=== PATIENT | male | born 1980 | race Caucasian/White ===

== ENCOUNTER 2017-07-19 21:36 | Inpatient (IN) | payer OTHER, MEDICARE ==
[~2017-07-19] VITALS: Ht 170.2 cm; Wt 71.0 kg
--- NOTE | 2017-07-19 22:14 | PD ---
HPI Chief Complaint: AGGRESSIVE/HI Time Seen by Provider: 22:01 Travel History International Travel<30 days: No Contact w/Intl Traveler<30days: No Traveled to known affect area: No History of Present Illness HPI PATIENT LIVES IN AN ASSISTED FACILITY IN [place] WHICH SENT HIM HERE. PATIENT IS UNAWARE TO WHY HE IS AT THIS FACILITY. HE BELIEVES HE'S HERE TO SPEND THE NIGHT BEFORE GOING TO HIS "NEW HOUSE"....WE PLACED CALL TO FACILITY TO CLEAR UP SINCE PATIENT HAS H/O PARANOID SCHIZOPHRENIA AND WAS SENT TO OUR FACILITY WITHOUT GARAY ACT OR ANY OTHER EXPLANATION...HE DENIES ANY SI/HI HERE TO ME. AFTER SPEAKING TO MOTHER THE STORY IS MUCH BETTER CLARIFIED: APPARENTLY PATIENT USE TO LIVE IN A SKILLED NURSING, WHICH WAS CLOSING ITS DOORS, IN PROCESS HE WAS RECCOMENDED TO GO TO ANOTHER SKILLED NURSING, HOWEVER THIS HOME DECLINED HIM BECAUSE PATIENT HAS BOUTS OF AGGRESSION. MOTHER TOOK HIM HOME, WHERE HE HAD ONE OF THESE EPISODES AND HE WAS RUNNING AROUND THE OUTSIDE OF HOUSE, YELLING THAT THEY ARE OUT TO GET HIM....MOTHER CALLED POLICE BECAUSE SHE WAS AFRAID FOR HER SAFETY. INSTEAD OF GARAY ACTING THE OFFICER ASKED IF PATIENT WOULD COME VOLUNTARILY....AND THAT IS HOW PATIENT ARRIVES AT THIS FACILITY ALL:NKDA PMHX:PARANOID SCHIZOPHRENIA PSHX: DENIES PFSH Social History Tobacco Use: Yes Allergies-Medications (Allergen,Severity, Reaction): Coded Allergies: No Known Allergies (Verified Allergy, Unknown, 07/19/17) Reported Meds & Prescriptions Reported Meds & Active Scripts Active Reported Depakote ER (Divalproex Sodium) 500 Mg Courtney 1,000 Mg PO DAILY Risperidone 4 Mg Tab 4 Mg PO BID Benztropine (Benztropine Mesylate) 0.5 Mg Tab 2 Mg PO BID Review of Systems Except as stated in HPI: all other systems reviewed are Neg Physical Exam Narrative GENERAL: SKIN: Warm and dry. HEAD: Atraumatic. Normocephalic. EYES: Pupils equal and round. No scleral icterus. No injection or drainage. ENT: No nasal bleeding or discharge. Mucous membranes pink and moist. NECK: Trachea midline. No JVD. CARDIOVASCULAR: Regular rate and rhythm. RESPIRATORY: No accessory muscle use. Clear to auscultation. Breath sounds equal bilaterally. GASTROINTESTINAL: Abdomen soft, non-tender, nondistended. Hepatic and splenic margins not palpable. MUSCULOSKELETAL: Extremities without clubbing, cyanosis, or edema. No obvious deformities. NEUROLOGICAL: Awake and alert. No obvious cranial nerve deficits. Motor grossly within normal limits. Five out of 5 muscle strength in the arms and legs. Normal speech. PSYCHIATRIC: FLAT affect;. Data Data Last Documented VS Vital Signs Date Time Temp Pulse Resp B/P (MAP) Pulse Ox O2 Delivery O2 Flow Rate FiO2 07/19/17 22:23 97.8 92 16 120/75 (90) 100 Orders Orders Complete Blood Count With Diff (07/19/17 22:01) Comprehensive Metabolic Panel (07/19/17 22:) Urinalysis - C+S If Indicated (07/19/17 22:) Electrocardiogram (07/19/17 22:) Valproic Acid (Depakene) (07/19/17 22:) Psych Screen (07/19/17 22:) Drug Screen, Random Urine (07/19/17 22:) Alcohol (Ethanol) (07/19/17 22:01) Salicylates (Aspirin) (07/19/17 22:01) Tylenol (Acetaminophen) (07/19/17 22:01) Labs Laboratory Tests Test 07/19/17 22:10 White Blood Count 12.2 TH/MM3 Red Blood Count 4.79 MIL/MM3 Hemoglobin 16.2 GM/DL Hematocrit 45.5 % Mean Corpuscular Volume 95.2 FL Mean Corpuscular Hemoglobin 33.8 PG Mean Corpuscular Hemoglobin Concent 35.6 % Red Cell Distribution Width 13.2 % Platelet Count 320 TH/MM3 Mean Platelet Volume 7.7 FL Neutrophils (%) (Auto) 60.7 % Lymphocytes (%) (Auto) 25.1 % Monocytes (%) (Auto) 11.9 % Eosinophils (%) (Auto) 1.5 % Basophils (%) (Auto) 0.8 % Neutrophils # (Auto) 7.4 TH/MM3 Lymphocytes # (Auto) 3.1 TH/MM3 Monocytes # (Auto) 1.5 TH/MM3 Eosinophils # (Auto) 0.2 TH/MM3 Basophils # (Auto) 0.1 TH/MM3 CBC Comment DIFF FINAL Differential Comment Urine Color LIGHT-YELLOW Urine Turbidity CLEAR Urine pH 6.5 Urine Specific [place] 1.004 Urine Protein NEG mg/dL Urine Glucose (UA) NEG mg/dL Urine Ketones NEG mg/dL Urine Occult Blood NEG Urine Nitrite NEG Urine Bilirubin NEG Urine Urobilinogen 2.0 MG/DL Urine Leukocyte Esterase NEG Urine WBC 1 /hpf Microscopic Urinalysis Comment CULT NOT INDICATED Blood Urea Nitrogen 7 MG/DL Creatinine 0.71 MG/DL Random Glucose 94 MG/DL Total Protein 7.8 GM/DL Albumin 3.6 GM/DL Calcium Level 8.5 MG/DL Alkaline Phosphatase 82 U/L Aspartate Amino Transf (AST/SGOT) 18 U/L Alanine Aminotransferase (ALT/SGPT) 17 U/L Total Bilirubin 0.3 MG/DL Sodium Level 132 MEQ/L Potassium Level 4.0 MEQ/L Chloride Level 98 MEQ/L Carbon Dioxide Level 26.4 MEQ/L Anion Gap 8 MEQ/L Estimat Glomerular Filtration Rate 126 ML/MIN Salicylates Level 4.4 MG/DL Urine Opiates Screen NEG Acetaminophen Level LESS THAN 2.0 MCG/ML Urine Barbiturates Screen NEG Valproic Acid (Depakene) Level 13 MCG/ML Urine Amphetamines Screen NEG Urine Benzodiazepines Screen NEG Urine Cocaine Screen NEG Urine Cannabinoids Screen NEG Ethyl Alcohol Level LESS THAN 3 MG/DL MDM Medical Decision Making Medical Screen Exam Complete: Yes Emergency Medical Condition: Yes Medical Record Reviewed: Yes Interpretation(s) NSR 80'S, NL INTERVALS, NONSTEMI PATTERN.. Differential Diagnosis INGESTIONS V UTI V ELECTROLYTE ABNL V PARANOID DELUSIONS Narrative Course PATIENT WAS FOUND TO BE WITHOUT E/O UTI, NORMAL ELECTROLYTES, PATIENT DEPAKOTE LEVELS WERE LOW ALSO SUGGESTING THAT PATIENT IS NONCOMPLIANT WITH MEDICATIONS. PT IS MEDICALLY CLEARED FOR PSYCHIATRIC EVALUATION Diagnosis Primary Impression: JARROD ACT-MEDICAL CLEARANCE Thomas Barrios MD Jul 19, 2017 22:14
[2017-07-19 22:23] VITALS: BP 120/75; PULSE 92; RESP 16; TEMP 97.8; O2SAT 100
[2017-07-19 22:30] LABS: AUTOMATED NEUTROPHIL # 7.4 TH/MM3 (1.8-7.7); BASOPHIL # 0.1 TH/MM3 (0-0.2); BASOPHIL % 0.8 % (0.0-2.0); EOSINOPHIL # 0.2 TH/MM3 (0-0.4); EOSINOPHIL % 1.5 % (0.0-4.0); HEMATOCRIT 45.5 % (39.0-51.0); HEMOGLOBIN 16.2 GM/DL (13.0-17.0); LYMPH % 25.1 % (9.0-44.0); LYMPHOCYTE # 3.1 TH/MM3 (1.0-4.8); MEAN CELL VOLUME 95.2 FL (80.0-100.0); MEAN CORPUSCULAR HEMOGLOBIN 33.8 PG (27.0-34.0); MEAN CORPUSCULAR HGB CONC 35.6 % (32.0-36.0); MEAN PLATELET VOLUME 7.7 FL (7.0-11.0); MONO % 11.9 % (0.0-8.0); MONOCYTE # 1.5 TH/MM3 (0-0.9); NEUT % 60.7 % (16.0-70.0); PLATELET COUNT 320 TH/MM3 (150-450); RED BLOOD COUNT 4.79 MIL/MM3 (4.50-5.90); RED CELL DISTRIBUTION WIDTH 13.2 % (11.6-17.2); WHITE BLOOD COUNT 12.2 TH/MM3 (4.0-11.0)
[2017-07-19 22:32] LABS: BILIRUBIN, URINE NEG (NEG); BLOOD, URINE NEG (NEG); GLUCOSE,URINE NEG (NEG); KETONE, URINE NEG (NEG); NITRITE,URINE NEG (NEG); PH, URINE 6.5 (5.0-8.5); URINE COLOR LIGHT-YELLOW (YELLW/STRAW); URINE LEUKOCYTE ESTERASE NEG (NEG)
[2017-07-19 22:51] LABS: ALBUMIN 3.6 GM/DL (3.4-5.0); ALT (GPT) 17 U/L (12-78); AST (GOT) 18 U/L (15-37); BICARBONATE 26.4 MEQ/L (21.0-32.0); BLOOD UREA NITROGEN 7 MG/DL (7-18); CALCIUM 8.5 MG/DL (8.5-10.1); CHLORIDE 98 MEQ/L (98-107); CREATININE 0.71 MG/DL (0.60-1.30); GLOMERULAR FILTRATION RATE 126 ML/MIN (>89); GLUCOSE,RANDOM 94 MG/DL (74-106); SODIUM (NA) 132 MEQ/L (136-145)
[2017-07-19 22:54] LABS: ALKALINE PHOSPHATASE 82 U/L (45-117); TOTAL BILIRUBIN ADULT 0.3 MG/DL (0.2-1.0); TOTAL PROTEIN 7.8 GM/DL (6.4-8.2)
[2017-07-19 22:57] LABS: ACETAMINOPHEN LESS THAN 2.0 MCG/ML (10.0-30.0)
[2017-07-19] MEDS ORDERED: BENZ0.5T PO (23:22)
[2017-07-19] MEDS ORDERED: DEPA500T3 PO (23:22)
[2017-07-19] MEDS ORDERED: RISP4TAB2 PO (23:22)
--- NOTE | 2017-07-20 10:22 | EKG ---
Date Performed: 07/19/2017 Time Performed: 23:58:18 PTAGE: 36 years EKG: Sinus rhythm NO PREVIOUS TRACING DOCTOR: Nitin Ty Interpretating Date/Time 07/20/2017 10:20:17
[2017-07-20 15:25] VITALS: BP 127/76; PULSE 92; RESP 18; TEMP 97.5; O2SAT 98
[2017-07-20 22:15] VITALS: BP_SYST 123; BP_SYST 133; BP_DIAS 71; BP_DIAS 75; PULSE 69; PULSE 75; RESP 16; RESP 18; TEMP 98.2; TEMP 98.3; O2SAT 100; O2SAT 99
[2017-07-21 02:00] VITALS: BP 112/57; PULSE 73; RESP 18; TEMP 97.9; O2SAT 95
[2017-07-21 04:19] VITALS: BP 112/57; PULSE 73; RESP 18; TEMP 97.9; O2SAT 95
[2017-07-21 06:17] VITALS: BP 122/78; PULSE 88; RESP 18; TEMP 97.8; O2SAT 99
[2017-07-21 11:00] VITALS: BP 121/65; PULSE 94; RESP 18
[2017-07-21] MEDS ORDERED: ACETAMINOPHEN 325 MG TAB PO PRN (12:00)
[2017-07-21] MEDS ORDERED: ALUMINUM/MAGNESIUM/SIMETH 30 ML CUP PO PRN (12:00)
[2017-07-21] MEDS ORDERED: LORazepam 2 MG/ML VIAL IM PRN (12:00)
[2017-07-21] MEDS ORDERED: hydrOXYzine HCL 50 MG TAB PO PRN (12:00)
[2017-07-21] MEDS ORDERED: LORazepam 1 MG TAB PO PRN (12:00)
[2017-07-21] MEDS ORDERED: MAGNESIUM HYDROXIDE SUSP 30 ML CUP PO PRN (12:00)
--- NOTE | 2017-07-21 12:08 | HHI.HP ---
Provisional Diagnosis Admission Date [place] I. Paranoid schizophrenia Certification of Person's Competence To Provide Express and Informed Consent I have personally examined Josep Albarado , a person being served at [facility] on, Jul 21, 2017 11:56. Express and informed consent means consent voluntarily given in writing, by a competent person, after sufficient explanation and disclosure of the subject matter involved to enable the person to make a knowing and willful decision without any element of force, fraud, deceit, duress, or other form of constraint or coercion. This person is 18 years of age or older, is not now known to be incompetent to consent to treatment with a guardian advocate, and does not have a health care surrogate or proxy currently making medical treatment decisions. I have found this person to be one of the following: [x] Competent to provide express and informed consent, as defined above, for voluntary admission to this facility and is competent to provide express and informed consent for treatment. He/she has the consistent capacity to make well reasoned, willful, and knowing decisions concerning his or her medical or mental health treatment. The person fully and consistently understands the purpose of the admission for examination/placement and is fully capable of personally exercising all rights assured [place] Incompetent to provide express and informed consent to voluntary admission, and this is incompetent to provide express and informed consent to treatment. The person must be transferred to involuntary status and a petition for a guardian advocate filed with the Circuit Court. [] Refusing to provide express and informed consent to voluntary admission but is competent to provide express and informed consent for treatment. The person must be discharged or transferred to involuntary status. Form shall be completed within 24 hours of a person's arrival at the receiving facility and filed in the clinical record of each person: 1. Admitted on a voluntary basis 2. Permitted to provide express and informed consent to his/her own treatment 3. Allowed to transfer from involuntary to voluntary status 4. Prior to permitting a person to consent to his or her own treatment after having been previously found incompetent to consent to treatment. History of Present Illness Capacity: Has Capacity HPI This is a 36-year-old male with a multiyear history of schizophrenia, presenting under a Ybarra act that was initiated by one of our ED attending physicians. Apparently the patient had to leave a correction in which he resided. In the process of attempting to get another correction, he was determined to be aggressive and therefore rejected. He has stayed with his mother recently and had one of these episodes of aggression, psychosis and threatening behavior. Apparently he was running around his mother's house, both inside and outside, calling and yelling that he was being persecuted and unknown other people were out to "get him". He became so agitated as to threaten physical aggression with his mother. Upon interview, the patient has obvious symptoms of tardive dyskinesia. His medications were reviewed and he is on high doses of Risperdal and low doses of Cogentin. He does feel paranoid and he is on able to contract for safety. Review of Systems Psychiatric: COMPLAINS OF: Delusions Except as stated in HPI: all other systems reviewed are Neg Past Psych History Psychological trauma history Unknown for psychological trauma. Patient does have multiyear history of schizophrenia. This is reportedly his first psychiatric hospitalization at [place]. Violence risk - others (6 mos) High. Violence risk - self (6 mos) Moderate. Substance Abuse History Drugs/Alcohol past 12 months Denied. Past Family Social History Coded Allergies: No Known Allergies (Verified Allergy, Unknown, 07/19/17) Reported Medications Divalproex ER (Depakote ER) 500 Mg Courtney, 1500 MG PO HS for Control Seizures, # 60 TAB 0 Refills 07/19/17 Risperidone (Risperidone) 4 Mg Tab, 4 MG PO BID, #30 TAB 0 Refills 07/19/17 Benztropine (Benztropine) 0.5 Mg Tab, 2 MG PO BID, #60 TAB 0 Refills 07/19/17 Discontinued Reported Medications Divalproex ER (Depakote ER) 500 Mg Courtney, 1500 MG PO HS for Control Seizures, # 30 TAB 0 Refills 07/19/17 Current Medications Medications (Trade) Dose Ordered Sig/Jasmyn Route Start Time Stop Time Status Last Admin (Ativan) 1 mg Q6H PRN PO 07/21/17 12:00 UNV (Ativan Inj) 1 mg Q6H PRN IM 07/21/17 12:00 UNV (Tylenol) 650 mg Q4H PRN PO 07/21/17 12:00 UNV (Milk Of Magnesia Liq) 30 ml DAILY PRN PO 07/21/17 12:00 UNV (Mag-Al Plus Susp Liq) 30 ml Q6H PRN PO 07/21/17 12:00 UNV (Atarax) 50 mg Q6H PRN PO 07/21/17 12:00 UNV Family Psych History Positive for psychotic illness. Social History Unemployed. Receives Social Security disability. Does have a supportive mother but she cannot handle him at this time. Denies the use and abuse of illicit substances. States he is compliant with his medicines although his Depakote level is low. Patient's Strengths (min. 2) Supportive mother and has access to healthcare. Physical Exam GENERAL: SKIN: Warm and dry. HEAD: Normocephalic. EYES: No scleral icterus. No injection or drainage. NECK: Supple, trachea midline. No JVD or lymphadenopathy. CARDIOVASCULAR: Regular rate and rhythm without murmurs, gallops, or rubs. RESPIRATORY: Breath sounds equal bilaterally. No accessory muscle use. GASTROINTESTINAL: Abdomen soft, non-tender, nondistended. MUSCULOSKELETAL: No cyanosis, or edema. BACK: Nontender without obvious deformity. No CVA tenderness. Vital Signs Vital Signs Date Time Temp Pulse Resp B/P (MAP) Pulse Ox O2 Delivery O2 Flow Rate FiO2 07/21/17 11:00 94 18 121/65 (83) Room Air 07/21/17 06:17 97.8 99 Mental Status Examination Appearance: Disheveled Consciousness: Alert Orientation: Person Motor Activity: Normal gait Speech: Hesitant Language: Adequate Fund of Knowledge: Inadequate Attention and Concentration: Easily Distracted Memory: Impaired Mood: Anxious Affect: Labile Thought Process & Associations: Loose associations Thought Content: Delusional Hallucination Type: None Delusion Type: Paranoid Suicidal Ideation: No Suicidal Plan: No Suicidal Intention: No Homicidal Ideation: No Homicidal Plan: No Homicidal Intention: No Insight: Fair Judgment: Impulsive Assessment & Plan Problem List: (1) Schizophrenia, paranoid type ICD Codes: F20.0 - Paranoid schizophrenia Assessment & Plan Estimated LOS: days. 36-year-old male with multiyear history of schizophrenia , obvious tardive dyskinesia, high dose Risperdal, continued paranoid delusions , and agitated threatening behavior at home towards mother. Because of the patient's agitation, paranoia and history of aggression, he is being admitted for further evaluation and treatment. This physician has ordered a CBC and comprehensive metabolic panel to determine if any infectious process or metabolic process is causing or contributing to his psychosis and agitation. Additionally, because he is on high dose Risperdal , which is known to cause hyperprolactinemia, we will check a prolactin level. Additionally, this physician ordered thyroid stimulating hormone levels, vitamin B-12 levels and vitamin D levels in order to determine if any deficiencies in these areas are causing or contributing to the patient's psychosis and agitation. This physician also ordered an EKG to determine the patient's cardiac conduction status as his psychotropic medicines can be adversely affecting his cardiac conduction system. This physician spoke with the patient's nurse regarding his recent behavior here in the emergency department. We will ask case management to get involved to provide further information from mother and assist with disposition planning. Fareed Paris MD Jul 21, 2017 12:08
[2017-07-21 14:05] VITALS: BP 117/71; PULSE 79; RESP 18; TEMP 98.3; O2SAT 100
[2017-07-21 18:13] VITALS: BP 128/66; PULSE 68; RESP 18; TEMP 98; O2SAT 98
[2017-07-21] MEDS: BENZTROPINE MESYLATE 1 MG TAB PO SCH (20:58)
[2017-07-21] MEDS: DIVALPROEX SODIUM E.R. 500 MG TAB PO SCH (20:58)
[2017-07-21] MEDS: risperiDONE 1 MG TAB PO SCH (20:59)
[2017-07-22 06:21] VITALS: BP 118/58; PULSE 82; RESP 18; TEMP 98.3; O2SAT 100
[2017-07-22] MEDS: risperiDONE 1 MG TAB PO SCH ×2 (08:44→21:04)
[2017-07-22] MEDS: BENZTROPINE MESYLATE 1 MG TAB PO SCH ×2 (08:44→21:04)
--- NOTE | 2017-07-22 09:35 | EKG ---
Date Performed: 07/22/2017 Time Performed: 08:07:07 PTAGE: 36 years EKG: Sinus rhythm NORMAL ECG No significant change from prior electrocardiogram. PREVIOUS TRACING : 07/19/2017 23.58 DOCTOR: Eric Villagomez Interpretating Date/Time 07/22/2017 09:33:56
[2017-07-22 10:54] LABS: AUTOMATED NEUTROPHIL # 3.7 TH/MM3 (1.8-7.7); BASOPHIL # 0.1 TH/MM3 (0-0.2); BASOPHIL % 0.8 % (0.0-2.0); EOSINOPHIL # 0.1 TH/MM3 (0-0.4); HEMATOCRIT 43.6 % (39.0-51.0); LYMPH % 29.8 % (9.0-44.0); MEAN CELL VOLUME 94.5 FL (80.0-100.0); MEAN CORPUSCULAR HEMOGLOBIN 32.5 PG (27.0-34.0); MEAN CORPUSCULAR HGB CONC 34.4 % (32.0-36.0); MEAN PLATELET VOLUME 7.4 FL (7.0-11.0); MONO % 11.6 % (0.0-8.0); MONOCYTE # 0.8 TH/MM3 (0-0.9); NEUT % 56.8 % (16.0-70.0); PLATELET COUNT 327 TH/MM3 (150-450); RED BLOOD COUNT 4.61 MIL/MM3 (4.50-5.90); RED CELL DISTRIBUTION WIDTH 13.2 % (11.6-17.2); WHITE BLOOD COUNT 6.6 TH/MM3 (4.0-11.0)
--- NOTE | 2017-07-22 11:09 | HHI.PYPN ---
Subjective Remarks Patient seen and examined with nurse in counselor. Chart reviewed. Case discussed with counselor and nurse. On my examination today, the patient says that he came into the hospital because "I just pricila moved out and need to find a place to stay." He maintains that he was compliant with medications prior to admission although this seems unlikely given his Depakote level. He denies any suicidal or homicidal ideation. Denies any audiovisual hallucinations but does appear a little bit internally preoccupied. He does exhibit some thought blocking. Denies side effects from medications. No physical complaints. Patient is requesting discharge from the inpatient psychiatric unit today, although it does not seem that he has a safe discharge plan. Review of Systems ROS Limitations: Psychotic, Poor Historian Except as stated in HPI: all other systems reviewed are Neg Mental Status Examination Appearance: Disheveled Consciousness: Alert Orientation: Person Motor Activity: Normal gait, Other (no hand tremor, no cogwheeling, no other motor abnormalities noted.) Speech: Hesitant Language: Adequate Fund of Knowledge: Inadequate Attention and Concentration: Easily Distracted Memory: Impaired Mood: Other (calm) Affect: Blunt Thought Process & Associations: Other (slowed) Thought Content: Thought blocking, Delusional Hallucination Type: None Delusion Type: Paranoid (mild) Suicidal Ideation: No Suicidal Plan: No Suicidal Intention: No Homicidal Ideation: No Homicidal Plan: No Homicidal Intention: No Insight: Fair Judgment: Impulsive Results Labs Item Value Date Time White Blood Count 6.6 TH/MM3 07/22/17 1018 Hemoglobin 15.0 GM/DL 07/22/17 1018 Platelet Count 327 TH/MM3 07/22/17 1018 Sodium Level 133 MEQ/L L 07/22/17 1018 Potassium Level 4.1 MEQ/L 07/22/17 1018 Chloride Level 101 MEQ/L 07/22/17 1018 Carbon Dioxide Level 27.2 MEQ/L 07/22/17 1018 Blood Urea Nitrogen 10 MG/DL 07/22/17 1018 Creatinine 0.69 MG/DL 07/22/17 1018 Estimat Glomerular Filtration Rate 130 ML/MIN 07/22/17 1018 Aspartate Amino Transf (AST/SGOT) 13 U/L L 07/22/17 1018 Alanine Aminotransferase (ALT/SGPT) 14 U/L 07/22/17 1018 Alkaline Phosphatase 69 U/L 07/22/17 1018 Random Glucose 94 MG/DL 07/22/17 1018 Vitamin B12 Level 326 PG/ML 07/22/17 1018 25-Hydroxy Vitamin D Total 18.9 ng/ML L 07/22/17 1018 Thyroid Stimulating Hormone 3rd Gen 0.659 uIU/ML 07/22/17 1018 Urine Opiates Screen NEG 07/19/17 2210 Urine Barbiturates Screen NEG 07/19/17 2210 Valproic Acid (Depakene) Level 13 MCG/ML L 07/19/17 2210 Urine Amphetamines Screen NEG 07/19/17 2210 Urine Benzodiazepines Screen NEG 07/19/17 2210 Urine Cocaine Screen NEG 07/19/17 221 Urine Cannabinoids Screen NEG 07/19/17 221 Ethyl Alcohol Level LESS THAN 3 MG/DL 07/19/17 221 Labs reviewed. Depakote level significantly subtherapeutic, especially for reported dose. Vitamin D level low. Stable hyponatremia noted. EKG sinus rhythm with a QTC of 378 ms. Vitals/IOs Vital Signs Date Time Temp Pulse Resp B/P (MAP) Pulse Ox O2 Delivery O2 Flow Rate FiO2 07/22/17 06:21 98.3 82 18 118/58 (78) 100 07/21/17 11:00 Room Air Assessment & Plan Problem List: (1) Schizophrenia, paranoid type ICD Codes: F20.0 - Paranoid schizophrenia Assessment & Plan Continue Risperdal and Cogentin as ordered. To consider long-acting injectable. Continue Depakote as ordered with plans to check Depakote level and ammonia level after the weekend. Vitamin D supplement. Check BMP over the weekend to trend hyponatremia. Continue to monitor on high acuity unit. Continue other medications and care as ordered. Patient is requesting discharge today, but I do not believe that discharge at this time is safe from a psychiatric standpoint, and it is not clear that he has any safety discharge plan at present. I will initiate a petition for involuntary psychiatric hospitalization and consult for second opinion. Justification for Cont. Inpt. Risk for decompensation in less restrictive environment. Discharge Planning Patient likely requires new placement. Case discussed with counselor. Request HC Surrog/Guard Advoc?: No Christopher Wall MD Jul 22, 2017 11:09
[2017-07-22 11:22] LABS: ALBUMIN 3.2 GM/DL (3.4-5.0); AST (GOT) 13 U/L (15-37); BICARBONATE 27.2 MEQ/L (21.0-32.0); BLOOD UREA NITROGEN 10 MG/DL (7-18); CALCIUM 8.5 MG/DL (8.5-10.1); CHLORIDE 101 MEQ/L (98-107); CREATININE 0.69 MG/DL (0.60-1.30); GLOMERULAR FILTRATION RATE 130 ML/MIN (>89); GLUCOSE,RANDOM 94 MG/DL (74-106); SODIUM (NA) 133 MEQ/L (136-145)
[2017-07-22 11:23] LABS: ALT (GPT) 14 U/L (12-78); CHOLESTEROL 115 MG/DL (120-200)
[2017-07-22 11:49] LABS: ALKALINE PHOSPHATASE 69 U/L (45-117); CHOLESTEROL/ HDL RATIO 2.69 RATIO; HDL CHOLESTEROL 42.6 MG/DL (40.0-60.0); LDL CHOLESTEROL 61 MG/DL (0-99); TOTAL BILIRUBIN ADULT 0.5 MG/DL (0.2-1.0); TOTAL PROTEIN 7.1 GM/DL (6.4-8.2); TRIGLYCERIDES 58 MG/DL (42-150)
--- NOTE | 2017-07-22 12:12 | PD.PSY.CON ---
Provisional Diagnosis Admission Date Jul 21, 2017 at 11:51 [place] I. Paranoid schizophrenia History of Present Illness Service Psychiatry Consult Requested By Dr. Wall X Reason for Consult Second opinion Primary Care Physician No Primary Care Physician HPI This is a 36-year-old male with a multiyear history of schizophrenia, presenting under a Ybarra act that was initiated by one of our ED attending physicians. Apparently the patient had to leave a mcc in which he resided. In the process of attempting to get another mcc, he was determined to be aggressive and therefore rejected. He has stayed with his mother recently and had one of these episodes of aggression, psychosis and threatening behavior. Apparently he was running around his mother's house, both inside and outside, calling and yelling that he was being persecuted and unknown other people were out to "get him". He became so agitated as to threaten physical aggression with his mother. Upon interview, the patient has obvious symptoms of tardive dyskinesia. His medications were reviewed and he is on high doses of Risperdal and low doses of Cogentin. He does feel paranoid and he is on able to contract for safety. The patient is a 36 years old white male, with history of schizophrenia, hospitalizations, consulted for second opinion. On psychiatric evaluation today the patient says that he is doing fine, that he wants to go home. She is very oppositional, resistant, reason to provide information for the interview. He seems be internally preoccupied and paranoid. Review of Systems Except as stated in HPI: all other systems reviewed are Neg Past Family Social History Coded Allergies: No Known Allergies (Verified Allergy, Unknown, 07/19/17) Reported Medications Divalproex ER (Depakote ER) 500 Mg Courtney, 1500 MG PO HS for Control Seizures, # 60 TAB 0 Refills 07/19/17 Risperidone (Risperidone) 4 Mg Tab, 4 MG PO BID, #30 TAB 0 Refills 07/19/17 Benztropine (Benztropine) 0.5 Mg Tab, 2 MG PO BID, #60 TAB 0 Refills 07/19/17 Discontinued Reported Medications Divalproex ER (Depakote ER) 500 Mg Courtney, 1500 MG PO HS for Control Seizures, # 30 TAB 0 Refills 07/19/17 Current Medications Medications (Trade) Dose Ordered Sig/Jasmyn Route Start Time Stop Time Status Last Admin (Ativan) 1 mg Q6H PRN PO 07/21/17 12:00 (Ativan Inj) 1 mg Q6H PRN IM 07/21/17 12:00 (Tylenol) 650 mg Q4H PRN PO 07/21/17 12:00 (Milk Of Magnesia Liq) 30 ml DAILY PRN PO 07/21/17 12:00 (Mag-Al Plus Susp Liq) 30 ml Q6H PRN PO 07/21/17 12:00 (Atarax) 50 mg Q6H PRN PO 07/21/17 12:00 (Cogentin) 2 mg BID PO 07/21/17 21:00 07/22/17 08:44 (Depakote Er) 1,500 mg HS PO 07/21/17 21:00 07/21/17 20:58 (risperDAL) 4 mg BID PO 07/21/17 21:00 07/22/17 08:44 Patient's Strengths (min. 2) Supportive mother and has access to healthcare. Physical Exam Vital Signs Vital Signs Date Time Temp Pulse Resp B/P (MAP) Pulse Ox O2 Delivery O2 Flow Rate FiO2 07/22/17 06:21 98.3 82 18 118/58 (78) 100 07/21/17 11:00 Room Air Lab Results Test 07/22/17 10:18 White Blood Count 6.6 TH/MM3 Red Blood Count 4.61 MIL/MM3 Hemoglobin 15.0 GM/DL Hematocrit 43.6 % Mean Corpuscular Volume 94.5 FL Mean Corpuscular Hemoglobin 32.5 PG Mean Corpuscular Hemoglobin Concent 34.4 % Red Cell Distribution Width 13.2 % Platelet Count 327 TH/MM3 Mean Platelet Volume 7.4 FL Neutrophils (%) (Auto) 56.8 % Lymphocytes (%) (Auto) 29.8 % Monocytes (%) (Auto) 11.6 % Eosinophils (%) (Auto) 1.0 % Basophils (%) (Auto) 0.8 % Neutrophils # (Auto) 3.7 TH/MM3 Lymphocytes # (Auto) 2.0 TH/MM3 Monocytes # (Auto) 0.8 TH/MM3 Eosinophils # (Auto) 0.1 TH/MM3 Basophils # (Auto) 0.1 TH/MM3 CBC Comment DIFF FINAL Differential Comment Blood Urea Nitrogen 10 MG/DL Creatinine 0.69 MG/DL Random Glucose 94 MG/DL Total Protein 7.1 GM/DL Albumin 3.2 GM/DL Calcium Level 8.5 MG/DL Alkaline Phosphatase 69 U/L Aspartate Amino Transf (AST/SGOT) 13 U/L Alanine Aminotransferase (ALT/SGPT) 14 U/L Total Bilirubin 0.5 MG/DL Sodium Level 133 MEQ/L Potassium Level 4.1 MEQ/L Chloride Level 101 MEQ/L Carbon Dioxide Level 27.2 MEQ/L Anion Gap 5 MEQ/L Estimat Glomerular Filtration Rate 130 ML/MIN Triglycerides Level 58 MG/DL Cholesterol Level 115 MG/DL LDL Cholesterol 61 MG/DL HDL Cholesterol 42.6 MG/DL Cholesterol/HDL Ratio 2.69 RATIO Vitamin B12 Level 326 PG/ML Thyroid Stimulating Hormone 3rd Gen 0.659 uIU/ML Mental Status Examination Appearance: Disheveled Consciousness: Alert Orientation: Person Motor Activity: Normal gait Speech: Hesitant Language: Adequate Fund of Knowledge: Inadequate Attention and Concentration: Easily Distracted Memory: Impaired Mood: Anxious Affect: Labile Thought Process & Associations: Loose associations Thought Content: Delusional Hallucination Type: None Delusion Type: Paranoid Suicidal Ideation: No Suicidal Plan: No Suicidal Intention: No Homicidal Ideation: No Homicidal Plan: No Homicidal Intention: No Insight: Fair Judgment: Impulsive Assessment & Plan Problem List: (1) Schizophrenia, paranoid type ICD Codes: F20.0 - Paranoid schizophrenia Assessment & Plan: I have seen and examined this patient, review documentation , I agree and concur with Dr. Wall. Assessment & Plan Estimated LOS: Darrin King MD Jul 22, 2017 12:12
--- NOTE | 2017-07-22 13:06 | PD.TTN ---
Patient Problems 1. Discharge planning 2. Medication compliance 3. Knowledge deficit 4. Lack of coping skills Progress Toward Goals Provider Present: Dr. La Wall Provider Input: Pt is new to the unit and will be evaluated along with his medication regiment. Psychiatric Counselors Present: ANDREA Azar Psych Therapist Input: Pt is new to the unit and will be evaluated using biopsychosocial assessment. Group Spec/RT/OT/IRWIN Present: Aba Hu OT Group Spec/RT/OT/IRWIN Input: Pt is new and will be evaluated. Discharge Plan SMA, Other Pt will need assistance with placement in an [facility] as he cannot return to mother' s home due to aggression leading to admission. Documentation Scribe: ANDREA Azar Jonathan LMHC Jul 22, 2017 13:06
[2017-07-22 13:52] LABS: HEMOGLOBIN A1C 5.3 % (4.3-6.0)
[2017-07-22 18:00] VITALS: BP 113/68; PULSE 79; RESP 18; TEMP 98.2; O2SAT 100
[2017-07-22] MEDS: DIVALPROEX SODIUM E.R. 500 MG TAB PO SCH (21:04)
[2017-07-23 06:03] VITALS: BP 120/68; PULSE 83; RESP 18; TEMP 98; O2SAT 97
[2017-07-23] MEDS: CHOLECALCIFEROL (VIT D3) 1000 UNIT TAB PO SCH (08:29)
[2017-07-23] MEDS: BENZTROPINE MESYLATE 1 MG TAB PO SCH ×2 (08:30→20:53)
[2017-07-23] MEDS: risperiDONE 1 MG TAB PO SCH ×2 (08:30→20:53)
--- NOTE | 2017-07-23 17:09 | HHI.PYPN ---
Subjective Remarks Patient was seen and case discussed with nursing. Patient is pleasant and cooperative with exam. Appears shy with poor eye contact. Behaving well on the unit. No ETO's needed. Labs came back with an elevated prolactin level. Denies auditory visual hallucinations. Mental Status Examination Appearance: Disheveled Consciousness: Alert Orientation: Person Motor Activity: Normal gait, Other (no hand tremor, no cogwheeling, no other motor abnormalities noted.) Speech: Hesitant Language: Adequate Fund of Knowledge: Inadequate Attention and Concentration: Easily Distracted Memory: Impaired Mood: Other (calm) Affect: Blunt Thought Process & Associations: Other (slowed) Thought Content: Thought blocking Hallucination Type: None Delusion Type: None Suicidal Ideation: No Suicidal Plan: No Suicidal Intention: No Homicidal Ideation: No Homicidal Plan: No Homicidal Intention: No Insight: Fair Judgment: Impulsive Results Vitals/IOs Vital Signs Date Time Temp Pulse Resp B/P (MAP) Pulse Ox O2 Delivery O2 Flow Rate FiO2 07/23/17 06:03 98.0 83 18 120/68 (85) 97 07/21/17 11:00 Room Air Assessment & Plan Problem List: (1) Schizophrenia, paranoid type ICD Codes: F20.0 - Paranoid schizophrenia Assessment & Plan Patient is on high dose of Risperdal with an elevated prolactin level. I recommend the treating psychiatrist to determine risk versus benefits for continuation Justification for Cont. Inpt. Patient would decompensate in a less restrictive setting Request HC Surrog/Guard Advoc?: No Neo Pedroza DO Jul 23, 2017 17:09
[2017-07-23 18:32] VITALS: BP 138/85; PULSE 73; RESP 18; TEMP 98; O2SAT 98
[2017-07-23] MEDS: DIVALPROEX SODIUM E.R. 500 MG TAB PO SCH (20:54)
[2017-07-24 06:24] VITALS: BP 114/63; PULSE 98; RESP 17; TEMP 97.9; O2SAT 99
[2017-07-24] MEDS: SODIUM CHLORIDE 1 GRAM TAB PO SCH ×3 (06:48→19:32)
[2017-07-24 10:34] LABS: BICARBONATE 26.5 MEQ/L (21.0-32.0); CALCIUM 8.9 MG/DL (8.5-10.1); CREATININE 0.64 MG/DL (0.60-1.30)
[2017-07-24] MEDS: CHOLECALCIFEROL (VIT D3) 1000 UNIT TAB PO SCH (10:42)
[2017-07-24] MEDS: risperiDONE 1 MG TAB PO SCH ×2 (10:42→20:23)
[2017-07-24] MEDS: BENZTROPINE MESYLATE 1 MG TAB PO SCH ×2 (10:42→20:23)
--- NOTE | 2017-07-24 15:54 | HHI.PYPN ---
Subjective Remarks Patient was seen and case discussed with nursing. Patient is pleasant and cooperative with exam. Behaving well on the unit and compliant with medications. Per nursing was observed talking to himself this morning. Plans after discharge include finding a job. He does remained mildly disheveled with poor eye contact. Labwork reviewed and sodium continues to trend downward and was 130 today Mental Status Examination Appearance: Disheveled Consciousness: Alert Orientation: Person Motor Activity: Normal gait, Other (no hand tremor, no cogwheeling, no other motor abnormalities noted.) Speech: Hesitant Language: Adequate Fund of Knowledge: Inadequate Attention and Concentration: Easily Distracted Memory: Impaired Mood: Other (calm) Affect: Blunt Thought Process & Associations: Other (slowed) Thought Content: Thought blocking Hallucination Type: None Delusion Type: None Suicidal Ideation: No Suicidal Plan: No Suicidal Intention: No Homicidal Ideation: No Homicidal Plan: No Homicidal Intention: No Insight: Fair Judgment: Impulsive Results Labs Test 07/24/17 09:10 Blood Urea Nitrogen 8 MG/DL Creatinine 0.64 MG/DL Random Glucose 82 MG/DL Calcium Level 8.9 MG/DL Sodium Level 130 MEQ/L Potassium Level 4.5 MEQ/L Chloride Level 97 MEQ/L Carbon Dioxide Level 26.5 MEQ/L Anion Gap 7 MEQ/L Estimat Glomerular Filtration Rate 142 ML/MIN Vitals/IOs Vital Signs Date Time Temp Pulse Resp B/P (MAP) Pulse Ox O2 Delivery O2 Flow Rate FiO2 07/24/17 06:24 97.9 98 17 114/63 (80) 99 07/21/17 11:00 Room Air Assessment & Plan Problem List: (1) Schizophrenia, paranoid type ICD Codes: F20.0 - Paranoid schizophrenia Assessment & Plan Hold Depakote because of hyponatremia. Hospitalist consult. Justification for Cont. Inpt. Patient would decompensate in a less restrictive setting Request HC Surrog/Guard Advoc?: No Neo Pedroza DO Jul 24, 2017 15:54
[2017-07-24 17:19] VITALS: BP 109/71; PULSE 76; RESP 18; TEMP 98.2; O2SAT 100
[2017-07-25 05:48] VITALS: BP 103/75; PULSE 76; RESP 17; TEMP 97.4; O2SAT 98
[2017-07-25] MEDS: risperiDONE 1 MG TAB PO SCH ×2 (09:00→20:51)
[2017-07-25] MEDS: SODIUM CHLORIDE 1 GRAM TAB PO SCH ×3 (09:00→17:12)
[2017-07-25] MEDS: CHOLECALCIFEROL (VIT D3) 1000 UNIT TAB PO SCH (09:00)
[2017-07-25] MEDS: BENZTROPINE MESYLATE 1 MG TAB PO SCH ×2 (09:00→20:50)
--- NOTE | 2017-07-25 09:18 | HHI.PYPN ---
Subjective Remarks Patient seen and examined with nurse. Chart reviewed. Case discussed with nursing staff. No behavioral issues overnight. On my examination today, the patient is calm and cooperative with exam. He denies any SI, HI or AVH. Denies side effects from medications. I note that Depakote was placed on hold out of concern for possible hyponatremia, although sodium level has not improved off of Depakote, and so I will resume this agent. I also note that prolactin level was elevated. Patient denies any sexual dysfunction. He denies any breast hypertrophy. No reported galactorrhea. I discussed with him the risks and benefits of continuing with Risperdal therapy, and the patient wishes to continue with this medication for now. I have counseled him to discuss changing to a different agent with his outpatient provider should sexual side effects or other issues related to hyperprolactinemia arise. Review of Systems Except as stated in HPI: all other systems reviewed are Neg Mental Status Examination Appearance: Disheveled (grooming somewhat improved today) Consciousness: Alert Orientation: Person Motor Activity: Normal gait, Other (no motor abnormalities noted) Speech: Hesitant Language: Adequate Attention and Concentration: Adequate Memory: Unremarkable Mood: Other (calm) Affect: Blunt (remains somewhat blunted) Thought Process & Associations: Other (linear but little bit slowed) Thought Content: Appropriate (perhaps some mild thought blocking) Hallucination Type: None Delusion Type: None Suicidal Ideation: No Suicidal Plan: No Suicidal Intention: No Homicidal Ideation: No Homicidal Plan: No Homicidal Intention: No Insight: Fair Judgment: Impulsive Results Labs Labs reviewed. I note ongoing hyponatremia despite Depakote having been held. Mild hyperprolactinemia noted. Vitals/IOs Vital Signs Date Time Temp Pulse Resp B/P (MAP) Pulse Ox O2 Delivery O2 Flow Rate FiO2 07/25/17 05:48 97.4 76 17 103/75 (84) 98 07/21/17 11:00 Room Air Assessment & Plan Problem List: (1) Schizophrenia, paranoid type ICD Codes: F20.0 - Paranoid schizophrenia Assessment & Plan Resume Depakote. Plan to check a Depakote level after the appropriate interval. Continue Risperdal and Cogentin as ordered. I did offer to switch to another agent with less liability for hyperprolactinemia but the patient has declined and is presently capacitated to consent for medications. Check BMP in the morning. Continue other medications and care as ordered. Justification for Cont. Inpt. Risk for decompensation in less restrictive environment. Discharge Planning Case discussed with counselor Request HC Surrog/Guard Advoc?: No Christopher Wall MD Jul 25, 2017 09:18
[2017-07-25 09:38] LABS: AUTOMATED NEUTROPHIL # 5.4 TH/MM3 (1.8-7.7); BASOPHIL % 0.4 % (0.0-2.0); EOSINOPHIL # 0.1 TH/MM3 (0-0.4); EOSINOPHIL % 0.9 % (0.0-4.0); HEMATOCRIT 46.5 % (39.0-51.0); HEMOGLOBIN 16.3 GM/DL (13.0-17.0); LYMPH % 20.5 % (9.0-44.0); LYMPHOCYTE # 1.7 TH/MM3 (1.0-4.8); MEAN CELL VOLUME 94.4 FL (80.0-100.0); MEAN CORPUSCULAR HEMOGLOBIN 33.2 PG (27.0-34.0); MEAN CORPUSCULAR HGB CONC 35.2 % (32.0-36.0); MEAN PLATELET VOLUME 7.7 FL (7.0-11.0); MONO % 11.6 % (0.0-8.0); MONOCYTE # 0.9 TH/MM3 (0-0.9); NEUT % 66.6 % (16.0-70.0); PLATELET COUNT 294 TH/MM3 (150-450); RED BLOOD COUNT 4.92 MIL/MM3 (4.50-5.90); RED CELL DISTRIBUTION WIDTH 12.8 % (11.6-17.2); WHITE BLOOD COUNT 8.1 TH/MM3 (4.0-11.0)
[2017-07-25 09:47] LABS: ALBUMIN 3.6 GM/DL (3.4-5.0); AST (GOT) 12 U/L (15-37); BICARBONATE 32.2 MEQ/L (21.0-32.0); BLOOD UREA NITROGEN 8 MG/DL (7-18); CHLORIDE 94 MEQ/L (98-107); GLOMERULAR FILTRATION RATE 128 ML/MIN (>89); GLUCOSE,RANDOM 54 MG/DL (74-106); MAGNESIUM 2.1 MG/DL (1.5-2.5); SODIUM (NA) 132 MEQ/L (136-145)
[2017-07-25 09:53] LABS: ALKALINE PHOSPHATASE 73 U/L (45-117); ALT (GPT) 16 U/L (12-78); TOTAL BILIRUBIN ADULT 0.5 MG/DL (0.2-1.0); TOTAL PROTEIN 7.6 GM/DL (6.4-8.2)
--- NOTE | 2017-07-25 11:13 | PD.CONS ---
HPI Service [facility] Hospitalists Consult Requested By Psychiatry Reason for Consult Hyponatremia Primary Care Physician No Primary Care Physician Diagnoses: History of Present Illness 36 years old male admitted to psych unit under psychiatry service for schizophrenia management, hospitalists were asked to see the patient for hyponatremia and sodium ranged between 1:30 to 134 Patient seen and examined, he denied any symptoms such as chest a lightheaded, dizziness, diarrhea abdominal pain nausea vomiting or change in his baseline mental status Review of Systems All systems reviewed and was positive for what is mentioned in history of present illness otherwise negative Past Family Social History Allergies: Coded Allergies: No Known Allergies (Verified Allergy, Unknown, 07/19/17) Past Medical History Schizophrenia Family History Review with the patient,not aware of significant medical history runs in his family Social History Denied tobacco alcohol or illicit drug abuse Physical Exam Vital Signs Vital Signs Date Time Temp Pulse Resp B/P (MAP) Pulse Ox O2 Delivery O2 Flow Rate FiO2 07/25/17 05:48 97.4 76 17 103/75 (84) 98 07/24/17 17:19 98.2 76 18 109/71 (84) 100 Physical Exam GENERAL: This is a well-nourished, well-developed patient, in no apparent distress. SKIN: No rashes, ecchymoses or lesions. Cool and dry. HEAD: Atraumatic. Normocephalic. No temporal or scalp tenderness. EYES: Pupils equal round and reactive. Extraocular motions intact. No scleral icterus. No injection or drainage. ENT: Nose without bleeding, purulent drainage or septal hematoma. Throat without erythema, tonsillar hypertrophy or exudate. Uvula midline. Airway patent. NECK: Trachea midline. No JVD or lymphadenopathy. Supple, nontender, no meningeal signs. CARDIOVASCULAR: Regular rate and rhythm without murmurs, gallops, or rubs. RESPIRATORY: Clear to auscultation. Breath sounds equal bilaterally. No wheezes , rales, or rhonchi. GASTROINTESTINAL: Abdomen soft, non-tender, nondistended. No hepato-splenomegaly , or palpable masses. No guarding. MUSCULOSKELETAL: Extremities without clubbing, cyanosis, or edema. No joint tenderness, effusion, or edema noted. No calf tenderness. Negative Homans sign bilaterally. NEUROLOGICAL: Awake and alert. Cranial nerves II through XII intact. Motor and sensory grossly within normal limits. Five out of 5 muscle strength in all muscle groups. Normal speech. Laboratory Laboratory Tests Test 07/25/17 09:12 White Blood Count 8.1 Red Blood Count 4.92 Hemoglobin 16.3 Hematocrit 46.5 Mean Corpuscular Volume 94.4 Mean Corpuscular Hemoglobin 33.2 Mean Corpuscular Hemoglobin Concent 35.2 Red Cell Distribution Width 12.8 Platelet Count 294 Mean Platelet Volume 7.7 Neutrophils (%) (Auto) 66.6 Lymphocytes (%) (Auto) 20.5 Monocytes (%) (Auto) 11.6 Eosinophils (%) (Auto) 0.9 Basophils (%) (Auto) 0.4 Neutrophils # (Auto) 5.4 Lymphocytes # (Auto) 1.7 Monocytes # (Auto) 0.9 Eosinophils # (Auto) 0.1 Basophils # (Auto) 0.0 CBC Comment DIFF FINAL Differential Comment Blood Urea Nitrogen 8 Creatinine 0.70 Random Glucose 54 Total Protein 7.6 Albumin 3.6 Calcium Level 9.0 Phosphorus Level 2.0 Magnesium Level 2.1 Alkaline Phosphatase 73 Aspartate Amino Transf (AST/SGOT) 12 Alanine Aminotransferase (ALT/SGPT) 16 Total Bilirubin 0.5 Sodium Level 132 Potassium Level 4.5 Chloride Level 94 Carbon Dioxide Level 32.2 Anion Gap 6 Estimat Glomerular Filtration Rate 128 Ammonia 22 Valproic Acid (Depakene) Level 49 Result Diagram: 07/25/1791107/25/17911 Assessment and Plan Assessment and Plan 36 years old patient with intracranial seen at the psychiatry unit, patient had hyponatremia between 1:30 to 134 which is most likely due to Depakote, most likely nonsignificant Also patient had prolactin level increased to 65 which is also mostly attributed to his recent use of Risperdal, This can be monitored after stopping risperidone. Otherwise patient seems to be stable, I will sign off and be available as needed Discussed Condition With Patient Noelle Oneill MD Jul 25, 2017 11:13
[2017-07-25 18:53] VITALS: BP 119/73; PULSE 78; RESP 16; TEMP 97.6; O2SAT 100
[2017-07-25] MEDS: DIVALPROEX SODIUM E.R. 500 MG TAB PO SCH (20:50)
[2017-07-26 05:58] VITALS: BP 100/69; PULSE 96; RESP 18; TEMP 97.8; O2SAT 98
[2017-07-26] MEDS: risperiDONE 1 MG TAB PO SCH ×2 (08:39→21:42)
[2017-07-26] MEDS: BENZTROPINE MESYLATE 1 MG TAB PO SCH ×2 (08:39→21:43)
[2017-07-26] MEDS: CHOLECALCIFEROL (VIT D3) 1000 UNIT TAB PO SCH (08:40)
[2017-07-26] MEDS: SODIUM CHLORIDE 1 GRAM TAB PO SCH ×3 (08:40→16:05)
--- NOTE | 2017-07-26 10:14 | HHI.PYPN ---
Subjective Remarks Patient seen and examined with nurse. Chart reviewed. Case discussed in treatment team. Patient has been no behavioral problem on the unit and nursing staff notes that the patient actively asks for his scheduled psychotropic medications. On my examination today, the patient is calm and cooperative with exam. He offers no particular complaints. Affect remains blunted. He denies any suicidal or homicidal ideation. Denies any audiovisual hallucinations. Denies side effects from medications. We revisited the hyperprolactinemia issue , but the patient is not interested in a med change at this time. No physical complaints. Hopeful for discharge soon. Review of Systems ROS Limitations: Poor Historian Except as stated in HPI: all other systems reviewed are Neg Mental Status Examination Appearance: Other (fair grooming) Consciousness: Alert Orientation: Person, Place (at least) Motor Activity: Normal gait, Other (no abnormal motor movements noted) Speech: Hesitant Language: Adequate Attention and Concentration: Adequate Memory: Unremarkable Mood: Other (remains calm) Affect: Blunt (remains blunted) Thought Process & Associations: Other (remains a little bit slowed but generally linear) Thought Content: Appropriate Hallucination Type: None Delusion Type: None Suicidal Ideation: No Suicidal Plan: No Suicidal Intention: No Homicidal Ideation: No Homicidal Plan: No Homicidal Intention: No Insight: Fair Judgment: Adequate (fair) Results Labs Labs reviewed. Hyponatremia improved at 135 today. Vitals/IOs Vital Signs Date Time Temp Pulse Resp B/P (MAP) Pulse Ox O2 Delivery O2 Flow Rate FiO2 07/26/17 05:58 97.8 96 18 100/69 (79) 98 Intake and Output 07/26/17 07/26/17 07/27/17 08:00 16:00 00:00 Intake Total 480 ml Balance 480 ml Assessment & Plan Problem List: (1) Schizophrenia, paranoid type ICD Codes: F20.0 - Paranoid schizophrenia Assessment & Plan Continue Risperdal as ordered. To consider long-acting injectable antipsychotic. Continue Depakote as ordered. We will plan to obtain a Depakote level after 4-7 days of uninterrupted therapy. Hospitalist input appreciated. Continue other medications and care as ordered. Justification for Cont. Inpt. Risk for decompensation in less restrictive environment Discharge Planning New placement. Case discussed with counselor. Request HC Surrog/Guard Advoc?: No Christopher Wall MD Jul 26, 2017 10:14
[2017-07-26 12:38] LABS: BICARBONATE 29.3 MEQ/L (21.0-32.0); CALCIUM 8.9 MG/DL (8.5-10.1); CREATININE 0.65 MG/DL (0.60-1.30)
--- NOTE | 2017-07-26 13:24 | PD.TTN ---
Patient Problems 1. Discharge planning 2. Medication compliance 3. Knowledge deficit 4. Lack of coping skills Progress Toward Goals Provider Present: Dr. La Wall Provider Input: Pt is new to the unit and will be evaluated along with his medication regiment. 07/26- Pt has been continued on his medication from home and will be evaluated for placement. Nurse(s) Present: Leonarda Delcid RN Nurse(s) Input: Pt has been showing improvement, remains withdrawn to self, to be responding to internal stimuli, paces the alston and is medication compliant. Psychiatric Counselors Present: ANDREA Azar Psych Therapist Input: Pt is new to the unit and will be evaluated using biopsychosocial assessment. 07/26- Pt appears somewhat preoccupied, cooperative, withdrawn, seclusive, appropriate and organized. He appears discharge focused and with poor insight into condition and need for care. He is willing to be placed at a new SNF. He appears to be able to utilize coping and emotional regulation skills as he has not had any outbursts. He is compliant with medication regiment. Group Spec/RT/OT/IRWIN Present: FRANCIS Davison, Aba Hu OT Group Spec/RT/OT/IRWIN Input: Pt is new and will be evaluated. 07/26- FRANCIS Davison Pt does not attend groups at this time. Discharge Plan SMA, Other Pt will need assistance with placement in an [facility] as he cannot return to mother' s home due to aggression leading to admission. Documentation Scribe: ANDREA Azar Jonathan LMHC Jul 26, 2017 13:24
[2017-07-26 18:00] VITALS: BP 120/67; PULSE 87; RESP 18; TEMP 98.6; O2SAT 99
[2017-07-26] MEDS: DIVALPROEX SODIUM E.R. 500 MG TAB PO SCH (21:43)
[2017-07-27 06:19] VITALS: BP 108/66; PULSE 89; RESP 18; TEMP 97.9; O2SAT 97
--- NOTE | 2017-07-27 08:49 | HHI.PYPN ---
Subjective Remarks Patient seen and examined with nurse. Chart reviewed. Case discussed with nursing staff who reports the patient was upset overnight because he thought staff were messing with his food. However, reviewing nutritional data it does not appear this affected his oral intake yesterday. On my examination today, the patient denies feeling like staff are messing with his food. I can elicit no paranoia generally. He denies any feelings of thought insertion or withdrawal. No other delusional material noted. He denies audiovisual hallucinations. He denies suicidal or homicidal ideation. Affect is quite flat and negative symptoms of schizophrenia generally are noted. Denies side effects from medications. No physical complaints. I did offer to have the patient sign into the hospital voluntarily, but he has declined. Review of Systems ROS Limitations: Poor Historian Except as stated in HPI: all other systems reviewed are Neg Mental Status Examination Appearance: Other (fair) Consciousness: Alert Orientation: Person, Place (at least) Motor Activity: Other (no motoric abnormalities noted) Speech: Hesitant Language: Adequate Attention and Concentration: Adequate Memory: Unremarkable Mood: Other (fair) Affect: Flat Thought Process & Associations: Other (remains a little bit slowed but generally linear) Thought Content: Appropriate Hallucination Type: None Delusion Type: None Suicidal Ideation: No Suicidal Plan: No Suicidal Intention: No Homicidal Ideation: No Homicidal Plan: No Homicidal Intention: No Insight: Fair Judgment: Adequate (fair) Results Labs Labs reviewed. No new labs. Vitals/IOs Vital Signs Date Time Temp Pulse Resp B/P (MAP) Pulse Ox O2 Delivery O2 Flow Rate FiO2 07/27/17 06:19 97.9 89 18 108/66 (80) 97 Assessment & Plan Problem List: (1) Schizophrenia, paranoid type ICD Codes: F20.0 - Paranoid schizophrenia Assessment & Plan Continue current psychotropics as ordered. Depakote and ammonia level Tuesday evening, and I have left in order that the Depakote be held that day until the level has been drawn. I suspect patient's affective flattening, anhedonia, and apathy are related to negative symptoms of schizophrenia although we might also consider tapering doses of medications to see if some of this is related to overmedication. I am loath to do so, however, as patient's psychiatric symptoms seem fairly well controlled on this regimen. Continue other medications and care as ordered. Justification for Cont. Inpt. Risk for decompensation in less restrictive environment. Discharge Planning Likely requires new placement. Case discussed with counselor. Request HC Surrog/Guard Advoc?: No Christopher Wall MD Jul 27, 2017 08:49
[2017-07-27] MEDS: risperiDONE 1 MG TAB PO SCH ×2 (08:57→21:22)
[2017-07-27] MEDS: SODIUM CHLORIDE 1 GRAM TAB PO SCH ×3 (08:57→16:59)
[2017-07-27] MEDS: CHOLECALCIFEROL (VIT D3) 1000 UNIT TAB PO SCH (08:57)
[2017-07-27] MEDS: BENZTROPINE MESYLATE 1 MG TAB PO SCH ×2 (08:57→21:21)
[2017-07-27 17:05] VITALS: BP 110/63; PULSE 69; RESP 18; TEMP 98.4; O2SAT 100
[2017-07-27] MEDS: DIVALPROEX SODIUM E.R. 500 MG TAB PO SCH (21:20)
[2017-07-28 05:54] VITALS: BP 119/58; PULSE 58; RESP 20; TEMP 97.8; O2SAT 97
[2017-07-28] MEDS: risperiDONE 1 MG TAB PO SCH ×2 (09:00→20:29)
[2017-07-28] MEDS: SODIUM CHLORIDE 1 GRAM TAB PO SCH ×3 (09:00→17:04)
[2017-07-28] MEDS: CHOLECALCIFEROL (VIT D3) 1000 UNIT TAB PO SCH (09:00)
[2017-07-28] MEDS: BENZTROPINE MESYLATE 1 MG TAB PO SCH ×2 (09:00→20:28)
--- NOTE | 2017-07-28 12:15 | HHI.PYPN ---
Subjective Remarks Patient seen and case discussed with nursing staff. Chart reviewed. No behavioral issues overnight. For me today, patient is calm, somewhat apathetic with affective flattening. Case presented to [facility] and placed in continuance for 2 weeks. No evident side effects from medications. No physical complaints voiced. Review of Systems ROS Limitations: Poor Historian Other limited ros negative Mental Status Examination Appearance: Other (remains fair) Consciousness: Alert Orientation: Person, Place (at least) Motor Activity: Other (no abnormal motor movements noted) Speech: Hesitant Language: Adequate Attention and Concentration: Adequate Memory: Unremarkable Mood: Other (calm) Affect: Flat Thought Process & Associations: Other (slowed) Thought Content: Appropriate Hallucination Type: None Delusion Type: None Suicidal Ideation: No Suicidal Plan: No Suicidal Intention: No Homicidal Ideation: No Homicidal Plan: No Homicidal Intention: No Insight: Fair Judgment: Adequate (fair) Results Labs Labs reviewed. No new labs. Vitals/IOs Vital Signs Date Time Temp Pulse Resp B/P (MAP) Pulse Ox O2 Delivery O2 Flow Rate FiO2 07/28/17 05:54 97.8 58 20 119/58 (78) 97 Assessment & Plan Problem List: (1) Schizophrenia, paranoid type ICD Codes: F20.0 - Paranoid schizophrenia Assessment & Plan Continue current psychotropics as ordered. To consider long-acting injectable antipsychotic. Check a sodium level. Depakote and ammonia level ordered for tomorrow evening. Continue other medications and care as ordered. Justification for Cont. Inpt. Risk for decompensation and less restrictive environment Discharge Planning New placement. Request HC Surrog/Guard Advoc?: No Christopher Wall MD Jul 28, 2017 12:15
[2017-07-28 16:50] VITALS: BP 130/65; PULSE 79; RESP 17; TEMP 97.6; O2SAT 99
[2017-07-28] MEDS: DIVALPROEX SODIUM E.R. 500 MG TAB PO SCH (20:29)
[2017-07-29 05:00] VITALS: BP 112/56; PULSE 88; RESP 16; TEMP 97.7; O2SAT 97
[2017-07-29] MEDS: BENZTROPINE MESYLATE 1 MG TAB PO SCH ×2 (09:29→21:34)
[2017-07-29] MEDS: risperiDONE 1 MG TAB PO SCH ×2 (09:29→21:34)
[2017-07-29] MEDS: CHOLECALCIFEROL (VIT D3) 1000 UNIT TAB PO SCH (09:29)
[2017-07-29] MEDS: SODIUM CHLORIDE 1 GRAM TAB PO SCH ×3 (09:29→17:48)
--- NOTE | 2017-07-29 09:58 | PD.TTN ---
Patient Problems 1. Discharge planning 2. Medication compliance 3. Knowledge deficit 4. Lack of coping skills Progress Toward Goals Provider Present: Dr. La Wall Provider Input: Pt is new to the unit and will be evaluated along with his medication regiment. 07/26- Pt has been continued on his medication from home and will be evaluated for placement. 07/29/17 Patient is being considered for long acting injectable. Placement is being looked at for patient. Nurse(s) Present: Leonarda Delcid RN Nurse(s) Input: Pt has been showing improvement, remains withdrawn to self, to be responding to internal stimuli, paces the alston and is medication compliant. 07/29/17 Patient's nurse Bere reports patient is medication complaint, calm, cooperative, attends groups, Performs ADL's denies any auditory or visual hallucinations. Pt does laugh inappropriately and appears to be internally responding. Psychiatric Counselors Present: ANDREA Azar, Kacey Cramer, [facility] [address] Psych Therapist Input: Pt is new to the unit and will be evaluated using biopsychosocial assessment. 07/26- Pt appears somewhat preoccupied, cooperative, withdrawn, seclusive, appropriate and organized. He appears discharge focused and with poor insight into condition and need for care. He is willing to be placed at a new [facility]. He appears to be able to utilize coping and emotional regulation skills as he has not had any outbursts. He is compliant with medication regiment. 07/29/17 Patient presents with no motiviation, no insight into his situation. Patient is alert to person, and place. patient presents with internal stimulation during assessment. patient made poor eye contact Patient's speech is low, and difficulty to understand. Placement is being looked at for patient. Group Spec/RT/OT/IRWIN Present: FRANCIS Davison, Aba Hu, OT, [place] [facility] Group Spec/RT/OT/IRWIN Input: Pt is new and will be evaluated. 07/26- FRANCIS Davison Pt does not attend groups at this time. 07/29/17 Patient attends some groups. Usually for a short period at a time. Discharge Plan SMA, Other Pt will need assistance with placement in an [facility] as he cannot return to mother' s home due to aggression leading to admission. Documentation Scribe: ANDREA Azarf,[facility] Jul 29, 2017 09:58
--- NOTE | 2017-07-29 12:49 | HHI.PYPN ---
Subjective Remarks Patient seen and examined with nurse. Chart reviewed. Case discussed with nursing staff who reports that the patient occasionally laughs inappropriately and seems to be responding to internal stimuli. He did sleep well overnight and is adherent to medications. Case discussed in treatment team with counselor who is working on placement for the patient as well as with occupational therapy. On my examination today, the patient presents with flat affect. He is fairly apathetic and anhedonic. He denies any audiovisual hallucinations, although I agree with nursing staff that he does appear mildly internally preoccupied. He denies any suicidal or homicidal ideation. He denies any side effects from medications. I have suggested that he consider long-acting injectable antipsychotic but he declines. No physical complaints. Review of Systems ROS Limitations: Poor Historian Except as stated in HPI: all other systems reviewed are Neg Mental Status Examination Appearance: Other (fairly well groomed) Consciousness: Alert Orientation: Person, Place Motor Activity: Other (no motor abnormalities) Speech: Hesitant Language: Adequate Attention and Concentration: Adequate Memory: Unremarkable Mood: Other (remains calm) Affect: Flat Thought Process & Associations: Other (slowed) Thought Content: Appropriate Hallucination Type: None (some degree of internal stimulation) Delusion Type: None Suicidal Ideation: No Suicidal Plan: No Suicidal Intention: No Homicidal Ideation: No Homicidal Plan: No Homicidal Intention: No Insight: Fair Judgment: Adequate (fair) Results Labs Test 07/28/17 16:00 07/29/17 06:55 Sodium Level 132 MEQ/L Ammonia 70 MCMOL/L Valproic Acid (Depakene) Level 84 MCG/ML Labs reviewed. Depakote level was ordered pre-dose yesterday evening but was instead drawn this morning, ~10.5hrs after last dose; consequently this level is spuriously high. Hyperammonemia is noted although there is no evidence of associated encephalopathy on exam. Vitals/IOs Vital Signs Date Time Temp Pulse Resp B/P (MAP) Pulse Ox O2 Delivery O2 Flow Rate FiO2 07/29/17 05:00 97.7 88 16 112/56 (74) 97 Assessment & Plan Problem List: (1) Schizophrenia, paranoid type ICD Codes: F20.0 - Paranoid schizophrenia Assessment & Plan Continue Risperdal and Depakote as ordered. I have recommended long-acting injectable but the patient declines. He is capacitated per [address] to make medical decisions. I have again revisited the issue of hyperprolactinemia but the patient wishes to continue with current medications as ordered. I will add Carnitor for hyperammonemia with plans to recheck an ammonia level next week. I will also try to check a pre-dose Depakote level at that time. I will request an occupational therapy consultation in light of patient's negative symptoms. Continue to monitor on the inpatient unit. Continue other medications and care as ordered. Justification for Cont. Inpt. Risk for decompensation in less restrictive environment. Discharge Planning New placement. Case discussed with counselor. Request HC Surrog/Guard Advoc?: No Christopher Wall MD Jul 29, 2017 12:49
[2017-07-29 17:37] VITALS: BP 115/64; PULSE 87; RESP 16; TEMP 97.8; O2SAT 100
[2017-07-29] MEDS: levOCARNitine 10% ORAL SOLN 118 ML BTL PO SCH (18:00)
[2017-07-29] MEDS: DIVALPROEX SODIUM E.R. 500 MG TAB PO SCH (21:34)
[2017-07-30 05:35] VITALS: BP 104/62; PULSE 86; RESP 16; TEMP 98.2; O2SAT 96
[2017-07-30] MEDS: levOCARNitine 10% ORAL SOLN 118 ML BTL PO SCH ×3 (09:00→18:00)
[2017-07-30] MEDS: CHOLECALCIFEROL (VIT D3) 1000 UNIT TAB PO SCH (09:22)
[2017-07-30] MEDS: SODIUM CHLORIDE 1 GRAM TAB PO SCH ×3 (09:23→18:16)
[2017-07-30] MEDS: BENZTROPINE MESYLATE 1 MG TAB PO SCH ×2 (09:23→22:29)
[2017-07-30] MEDS: risperiDONE 1 MG TAB PO SCH ×2 (10:14→22:28)
--- NOTE | 2017-07-30 15:37 | HHI.PYPN ---
Subjective Remarks Patient was seen and case discussed with nursing. remains internally preoccupied. He has delayed response when asked about hallucinations. Appears to have been listening to them before answering. Thinking about we will do for chrysalis. He is on good behavior. Says he is eating and sleeping well Mental Status Examination Appearance: Other (fairly well groomed) Consciousness: Alert Orientation: Person, Place Motor Activity: Other (no motor abnormalities) Speech: Hesitant Language: Adequate Attention and Concentration: Adequate Memory: Unremarkable Mood: Other (remains calm) Affect: Flat Thought Process & Associations: Other (slowed) Thought Content: Appropriate, Hallucinations Hallucination Type: Auditory (could be responding to internal stimuli) Delusion Type: None Suicidal Ideation: No Suicidal Plan: No Suicidal Intention: No Homicidal Ideation: No Homicidal Plan: No Homicidal Intention: No Insight: Fair Judgment: Adequate (fair) Results Labs Test 07/30/17 10:08 Sodium Level 133 MEQ/L Vitals/IOs Vital Signs Date Time Temp Pulse Resp B/P (MAP) Pulse Ox O2 Delivery O2 Flow Rate FiO2 07/30/17 05:35 98.2 86 16 104/62 (76) 96 Intake and Output 07/30/17 07/30/17 07/31/17 08:00 16:00 00:00 Intake Total 480 ml 480 ml Balance 480 ml 480 ml Assessment & Plan Problem List: (1) Schizophrenia, paranoid type ICD Codes: F20.0 - Paranoid schizophrenia Assessment & Plan Continue current treatment plan Justification for Cont. Inpt. Patient would decompensate in a less restrictive setting Request HC Surrog/Guard Advoc?: No Neo Pedroza DO Jul 30, 2017 15:37
[2017-07-30 18:32] VITALS: BP 141/67; PULSE 88; RESP 18; TEMP 97.9; O2SAT 98
[2017-07-30] MEDS: DIVALPROEX SODIUM E.R. 500 MG TAB PO SCH (22:29)
[2017-07-31 06:00] VITALS: BP 118/55; PULSE 85; RESP 18; TEMP 97.2; O2SAT 97
[2017-07-31] MEDS: BENZTROPINE MESYLATE 1 MG TAB PO SCH ×2 (08:33→21:28)
[2017-07-31] MEDS: SODIUM CHLORIDE 1 GRAM TAB PO SCH ×3 (08:33→18:20)
[2017-07-31] MEDS: CHOLECALCIFEROL (VIT D3) 1000 UNIT TAB PO SCH (08:33)
[2017-07-31] MEDS: risperiDONE 1 MG TAB PO SCH ×2 (08:33→21:28)
[2017-07-31] MEDS: levOCARNitine 10% ORAL SOLN 118 ML BTL PO SCH ×3 (08:40→18:21)
--- NOTE | 2017-07-31 11:02 | HHI.PYPN ---
Subjective Remarks Patient was seen and case discussed with nursing. Patient remains on good behavior. Tolerating medications well. Spending the day pacing the hallway. Insight remains poor thinking he is only here because he needed "a place to stay." He is laughing to himself at times but does deny auditory hallucinations. Had a visit from his mom yesterday Mental Status Examination Appearance: Other (fairly well groomed) Consciousness: Alert Orientation: Person, Place Motor Activity: Other (no motor abnormalities) Speech: Hesitant Language: Adequate Attention and Concentration: Adequate Memory: Unremarkable Mood: Other (remains calm) Affect: Flat Thought Process & Associations: Other (slowed) Thought Content: Appropriate, Hallucinations Hallucination Type: Auditory (could be responding to internal stimuli) Delusion Type: None Suicidal Ideation: No Suicidal Plan: No Suicidal Intention: No Homicidal Ideation: No Homicidal Plan: No Homicidal Intention: No Insight: Fair Judgment: Adequate (fair) Results Vitals/IOs Vital Signs Date Time Temp Pulse Resp B/P (MAP) Pulse Ox O2 Delivery O2 Flow Rate FiO2 07/31/17 06:00 97.2 85 18 118/55 (08) 97 Assessment & Plan Problem List: (1) Schizophrenia, paranoid type ICD Codes: F20.0 - Paranoid schizophrenia Assessment & Plan Continue current treatment plan Justification for Cont. Inpt. Patient will decompensate in a less restrictive setting Request HC Surrog/Guard Advoc?: Neo Funez DO Jul 31, 2017 11:02
[2017-07-31 18:40] VITALS: BP 118/69; PULSE 71; RESP 18; TEMP 98.5; O2SAT 99
[2017-07-31] MEDS: DIVALPROEX SODIUM E.R. 500 MG TAB PO SCH (21:27)
[2017-08-01 05:58] VITALS: BP 115/63; PULSE 57; RESP 17; TEMP 97.6; O2SAT 98
[2017-08-01] MEDS ORDERED: OLANZapine IM 10 MG VIAL IM STA (07:32)
[2017-08-01] MEDS: SODIUM CHLORIDE 1 GRAM TAB PO SCH ×3 (08:22→17:49)
[2017-08-01] MEDS: BENZTROPINE MESYLATE 1 MG TAB PO SCH ×2 (08:22→20:34)
[2017-08-01] MEDS: risperiDONE 1 MG TAB PO SCH ×2 (08:22→20:34)
[2017-08-01] MEDS: CHOLECALCIFEROL (VIT D3) 1000 UNIT TAB PO SCH (08:22)
[2017-08-01] MEDS: levOCARNitine 10% ORAL SOLN 118 ML BTL PO SCH ×3 (08:22→17:49)
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
[2017-08-01] MEDS: DIVALPROEX SODIUM E.R. 500 MG TAB PO SCH (20:34)
[2017-08-02 05:49] VITALS: BP 110/56; PULSE 86; RESP 16; TEMP 98.1; O2SAT 97
[2017-08-02] MEDS: CHOLECALCIFEROL (VIT D3) 1000 UNIT TAB PO SCH (09:58)
[2017-08-02] MEDS: ARIPiprazole 5 MG TAB PO SCH (09:58)
[2017-08-02] MEDS: BENZTROPINE MESYLATE 1 MG TAB PO SCH ×2 (09:58→20:57)
[2017-08-02] MEDS: risperiDONE 1 MG TAB PO SCH ×2 (09:58→20:57)
[2017-08-02] MEDS: levOCARNitine 10% ORAL SOLN 118 ML BTL PO SCH ×4 (09:58→18:08)
[2017-08-02] MEDS: SODIUM CHLORIDE 1 GRAM TAB PO SCH ×3 (11:20→18:08)
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
[2017-08-02 18:51] VITALS: BP 122/62; PULSE 84; RESP 18; TEMP 98.6; O2SAT 100
[2017-08-02] MEDS: DIVALPROEX SODIUM E.R. 500 MG TAB PO SCH (20:57)
[2017-08-03 06:18] VITALS: BP 110/67; PULSE 80; RESP 18; TEMP 98.1; O2SAT 99
[2017-08-03] MEDS: levOCARNitine 10% ORAL SOLN 118 ML BTL PO SCH ×3 (09:00→18:00)
[2017-08-03] MEDS: SODIUM CHLORIDE 1 GRAM TAB PO SCH ×3 (09:45→18:00)
[2017-08-03] MEDS: ARIPiprazole 5 MG TAB PO SCH (09:45)
[2017-08-03] MEDS: risperiDONE 1 MG TAB PO SCH ×2 (09:45→20:57)
[2017-08-03] MEDS: BENZTROPINE MESYLATE 1 MG TAB PO SCH ×2 (09:46→20:57)
[2017-08-03] MEDS: CHOLECALCIFEROL (VIT D3) 1000 UNIT TAB PO SCH (09:46)
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
[2017-08-03] MEDS ORDERED: ARIPiprazole 5 MG TAB PO ONE (12:30)
[2017-08-03 16:10] VITALS: BP 114/72; PULSE 87; RESP 18; TEMP 97.8; O2SAT 98
[2017-08-03] MEDS: DIVALPROEX SODIUM E.R. 500 MG TAB PO SCH (20:57)
[2017-08-04 05:57] VITALS: BP 122/58; PULSE 83; RESP 17; TEMP 97.9; O2SAT 99
[2017-08-04] MEDS: SODIUM CHLORIDE 1 GRAM TAB PO SCH ×3 (08:48→17:35)
[2017-08-04] MEDS: CHOLECALCIFEROL (VIT D3) 1000 UNIT TAB PO SCH (08:48)
[2017-08-04] MEDS: risperiDONE 1 MG TAB PO SCH ×2 (08:48→20:46)
[2017-08-04] MEDS: levOCARNitine 10% ORAL SOLN 118 ML BTL PO SCH ×3 (08:49→17:23)
[2017-08-04] MEDS: BENZTROPINE MESYLATE 1 MG TAB PO SCH ×2 (08:49→20:45)
[2017-08-04] MEDS ORDERED: ARIPiprazole 5 MG TAB PO SCH (09:00)
--- NOTE | 2017-08-04 11:48 | HHI.PYPN ---
Subjective Chief Complaint: Psychosis Remarks Patient seen and examined. Chart reviewed. Case discussed with nursing staff. No behavioral issues overnight. On my exam, patient continues to display some thought blocking. He is calm and cooperative with exam. He denies SI/HI/ AVH. Affect a little more reactive as we are cross-tapering Risperdal to Abilify. No side effects from medications. No physical complaints. Review of Systems ROS Limitations: Psychotic, Poor Historian Except as stated in HPI: all other systems reviewed are Neg Mental Status Examination Appearance: Appropriate Consciousness: Alert Orientation: Person, Place Motor Activity: Other (no motoric abnormalities appreciated) Speech: Hesitant, Slow Language: Adequate Fund of Knowledge: Adequate Attention and Concentration: Adequate Memory: Unremarkable Mood: Other (calm) Affect: Blunt (some more affective reactivity) Thought Process & Associations: Other (delayed but generally linear) Thought Content: Thought blocking Hallucination Type: None (remains a little internally stimulated) Delusion Type: None Suicidal Ideation: No Suicidal Plan: No Suicidal Intention: No Homicidal Ideation: No Homicidal Plan: No Homicidal Intention: No Insight: Fair Judgment: Impulsive Results Labs Labs reviewed. Sodium level 134. I will recheck sodium level when we check the ammonia level on 08/08. Vitals/IOs Vital Signs Date Time Temp Pulse Resp B/P (MAP) Pulse Ox O2 Delivery O2 Flow Rate FiO2 08/04/17 05:57 97.9 83 17 122/58 (79) 99 Assessment & Plan Problem List: (1) Schizophrenia, paranoid type ICD Codes: F20.0 - Paranoid schizophrenia Assessment & Plan Continue cross taper of Risperdal to Abilify. Risperdal 2 mg twice daily and Abilify 15 mg daily. I have suggested to patient the possibility of Abilify Maintena, but he declines this now and is capacitated to consent for medications per [address]. I will revisit this with him later. Continue to monitor on the high acuity unit. Continue other medications and care as ordered. Justification for Cont. Inpt. Medication changes. High risk for decompensation in less restrictive environment. Discharge Planning New placement Request HC Surrog/Guard Advoc?: No Christopher Wall MD Aug 04, 2017 11:48
[2017-08-04 17:15] VITALS: BP 125/66; PULSE 83; RESP 18; TEMP 98.2; O2SAT 100
[2017-08-04] MEDS: DIVALPROEX SODIUM E.R. 500 MG TAB PO SCH (20:45)
[2017-08-05 06:20] VITALS: BP 114/68; PULSE 90; RESP 18; TEMP 97.7; O2SAT 90
[2017-08-05] MEDS: CHOLECALCIFEROL (VIT D3) 1000 UNIT TAB PO SCH (09:00)
[2017-08-05] MEDS: risperiDONE 1 MG TAB PO SCH ×2 (09:00→21:11)
[2017-08-05] MEDS: SODIUM CHLORIDE 1 GRAM TAB PO SCH ×3 (09:00→17:34)
[2017-08-05] MEDS: levOCARNitine 10% ORAL SOLN 118 ML BTL PO SCH ×3 (09:00→17:33)
[2017-08-05] MEDS: BENZTROPINE MESYLATE 1 MG TAB PO SCH ×2 (09:00→21:00)
[2017-08-05] MEDS ORDERED: ARIPiprazole 15 MG TAB PO SCH (09:00)
--- NOTE | 2017-08-05 09:59 | HHI.PYPN ---
Subjective Chief Complaint: Psychosis Remarks Patient seen and examined with nurse. Chart reviewed. Case discussed in treatment team. No behavioral issues overnight. On my examination today, the patient presents with a brighter affect as we are cross tapering from Risperdal to Abilify. He denies any violent thoughts. He denies any audiovisual hallucinations although he does still appear a little internally stimulated. I do note that he is bouncing from foot to foot although he denies any subjective sense of restlessness or urge to move. Denies any other side effects from medications. No physical complaints. Review of Systems ROS Limitations: Psychotic, Poor Historian Except as stated in HPI: all other systems reviewed are Neg Mental Status Examination Appearance: Appropriate Consciousness: Alert Orientation: Person, Place Motor Activity: Other (besides appearing a little restless, no abnormal motor movements noted) Speech: Other (more spontaneous) Language: Adequate Fund of Knowledge: Adequate Attention and Concentration: Adequate Memory: Unremarkable Mood: Good Affect: Other (affect brighter today versus yesterday) Thought Process & Associations: Other (delayed but generally linear) Thought Content: Thought blocking Hallucination Type: Other (denies AVH but appears internally stimulated still) Delusion Type: None Suicidal Ideation: No Suicidal Plan: No Suicidal Intention: No Homicidal Ideation: No Homicidal Plan: No Homicidal Intention: No Insight: Fair Judgment: Impulsive Mental Status Exam Remarks No signs of EPS on exam. Results Labs Labs reviewed. No new labs. Vitals/IOs Vital Signs Date Time Temp Pulse Resp B/P (MAP) Pulse Ox O2 Delivery O2 Flow Rate FiO2 08/05/17 06:20 97.7 90 18 114/68 (83) 98 Assessment & Plan Problem List: (1) Schizophrenia, paranoid type ICD Codes: F20.0 - Paranoid schizophrenia Assessment & Plan Continue cross taper Risperdal to Abilify. Abilify 20 mg daily and Risperdal 1.5 mg twice daily. Now that the patient is no longer on high-dose Risperdal therapy, I suspect that his Cogentin can be decreased. Cogentin 1 mg twice daily and I will make additional Cogentin available as needed for any breakthrough EPS. Sodium and ammonia level ordered for the morning of the . Continue to monitor on the high acuity unit. Continue other medications include as ordered. Justification for Cont. Inpt. Med changes. Monitoring for impairment and safety. Risk for decompensation and less restrictive environment. Discharge Planning New placement. Case discussed with counselor. Request HC Surrog/Guard Advoc?: No Christopher Wall MD Aug 05, 2017 09:59
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
[2017-08-05] MEDS ORDERED: BENZTROPINE MESYLATE 1 MG TAB PO PRN (15:15)
[2017-08-05] MEDS ORDERED: BENZTROPINE MESYLATE 2 MG/2 ML VIAL IM PRN (15:15)
[2017-08-05 15:34] VITALS: O2SAT 98
[2017-08-05 17:30] VITALS: BP 135/76; PULSE 84; RESP 18; TEMP 98.5; O2SAT 100
[2017-08-05] MEDS: DIVALPROEX SODIUM E.R. 500 MG TAB PO SCH (21:12)
[2017-08-06 06:47] VITALS: BP 110/72; PULSE 99; RESP 17; TEMP 98.7; O2SAT 100
[2017-08-06] MEDS: CHOLECALCIFEROL (VIT D3) 1000 UNIT TAB PO SCH (09:42)
[2017-08-06] MEDS: levOCARNitine 10% ORAL SOLN 118 ML BTL PO SCH ×3 (09:43→18:24)
[2017-08-06] MEDS: SODIUM CHLORIDE 1 GRAM TAB PO SCH ×3 (09:43→18:24)
[2017-08-06] MEDS: BENZTROPINE MESYLATE 1 MG TAB PO SCH ×2 (09:43→21:52)
[2017-08-06] MEDS: risperiDONE 1 MG TAB PO SCH ×2 (09:43→21:53)
--- NOTE | 2017-08-06 15:30 | HHI.PYPN ---
Subjective Chief Complaint: Psychosis Remarks Patient was seen and case discussed with nursing. Patient continues in good behavior. Spending his time pacing the hallway. His compliant his medication and tolerating them well. We discussed his course was traditions at home. Looking forward to a visit from his mother. Continues to deny auditory hallucinations. Mental Status Examination Appearance: Appropriate Consciousness: Alert Orientation: Person, Place Motor Activity: Other (besides appearing a little restless, no abnormal motor movements noted) Speech: Other (more spontaneous) Language: Adequate Fund of Knowledge: Adequate Attention and Concentration: Adequate Memory: Unremarkable Mood: Good Affect: Other (brighter) Thought Process & Associations: Other (delayed but generally linear) Thought Content: Thought blocking Hallucination Type: Other (denies AVH but appears internally stimulated still) Delusion Type: None Suicidal Ideation: No Suicidal Plan: No Suicidal Intention: No Homicidal Ideation: No Homicidal Plan: No Homicidal Intention: No Insight: Fair Judgment: Impulsive Results Vitals/IOs Vital Signs Date Time Temp Pulse Resp B/P (MAP) Pulse Ox O2 Delivery O2 Flow Rate FiO2 08/06/17 06:47 98.7 99 17 110/72 (85) 100 Assessment & Plan Problem List: (1) Schizophrenia, paranoid type ICD Codes: F20.0 - Paranoid schizophrenia Assessment & Plan Continue current treatment plan Justification for Cont. Inpt. Patient would decompensate in a less restrictive setting Request HC Surrog/Guard Advoc?: Neo Funez DO Aug 06, 2017 15:30
[2017-08-06 17:47] VITALS: BP 127/70; PULSE 89; RESP 17; TEMP 98.5; O2SAT 99
[2017-08-06] MEDS: DIVALPROEX SODIUM E.R. 500 MG TAB PO SCH (21:52)
[2017-08-07 05:49] VITALS: BP 110/66; PULSE 93; RESP 18; TEMP 97.8; O2SAT 99
[2017-08-07] MEDS: SODIUM CHLORIDE 1 GRAM TAB PO SCH ×3 (08:55→18:42)
[2017-08-07] MEDS: CHOLECALCIFEROL (VIT D3) 1000 UNIT TAB PO SCH (08:55)
[2017-08-07] MEDS: risperiDONE 1 MG TAB PO SCH ×2 (08:55→20:24)
[2017-08-07] MEDS: BENZTROPINE MESYLATE 1 MG TAB PO SCH ×2 (08:55→20:23)
[2017-08-07] MEDS: levOCARNitine 10% ORAL SOLN 118 ML BTL PO SCH ×3 (08:57→18:00)
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
[2017-08-07 18:00] VITALS: BP 117/78; PULSE 93; RESP 18; TEMP 97.9; O2SAT 99
[2017-08-07] MEDS: DIVALPROEX SODIUM E.R. 500 MG TAB PO SCH (21:51)
[2017-08-08 06:06] VITALS: BP 113/68; PULSE 99; RESP 18; TEMP 97.9; O2SAT 98
[2017-08-08] MEDS: BENZTROPINE MESYLATE 1 MG TAB PO SCH ×2 (09:00→20:31)
[2017-08-08] MEDS: levOCARNitine 10% ORAL SOLN 118 ML BTL PO SCH ×3 (09:00→18:00)
[2017-08-08] MEDS: risperiDONE 1 MG TAB PO SCH ×2 (09:00→20:32)
[2017-08-08] MEDS: CHOLECALCIFEROL (VIT D3) 1000 UNIT TAB PO SCH (09:00)
[2017-08-08] MEDS: SODIUM CHLORIDE 1 GRAM TAB PO SCH ×3 (09:00→18:00)
--- NOTE | 2017-08-08 10:41 | HHI.PYPN ---
Subjective Chief Complaint: Psychosis Remarks Patient seen and examined with nurse. Chart reviewed. Case discussed with nursing staff. No behavioral issues overnight. On my examination today, the patient is sitting in the day area. He is calm and cooperative with examination. He denies any SI, HI or AVH. Remains a little internally preoccupied still. Denies side effects from medications. Continues to decline long-acting injectable antipsychotic when I suggested this agent to him today. No physical complaints. Review of Systems ROS Limitations: Psychotic, Poor Historian Except as stated in HPI: all other systems reviewed are Neg Mental Status Examination Appearance: Appropriate Consciousness: Alert Orientation: Person, Place (at least) Motor Activity: Other (no motoric abnormalities noted) Speech: Unremarkable Language: Adequate Fund of Knowledge: Adequate Attention and Concentration: Adequate Memory: Unremarkable Mood: Appropriate Affect: Other (somewhat childlike but generally appropriate) Thought Process & Associations: Other (delayed but generally linear) Thought Content: Thought blocking (mild) Hallucination Type: Other (denies AVH but appears slightly internally stimulated still) Delusion Type: None Suicidal Ideation: No Suicidal Plan: No Suicidal Intention: No Homicidal Ideation: No Homicidal Plan: No Homicidal Intention: No Insight: Fair Judgment: Impulsive Results Labs Test 08/08/17 07:55 Sodium Level 135 MEQ/L Ammonia 55 MCMOL/L Labs reviewed. Sodium level just slightly low. Ammonia level decreasing. Vitals/IOs Vital Signs Date Time Temp Pulse Resp B/P (MAP) Pulse Ox O2 Delivery O2 Flow Rate FiO2 08/08/17 06:06 97.9 99 18 113/68 (83) 98 Assessment & Plan Problem List: (1) Schizophrenia, paranoid type ICD Codes: F20.0 - Paranoid schizophrenia Assessment & Plan Titrate Abilify to 30 mg daily and taper Risperdal to 1 mg twice daily as part of cross taper. Plan for discontinuation of Risperdal. Continue Depakote with Carnitor for hyperammonemia, which is improving. Continue to monitor on the inpatient unit. Continue other medications and care as ordered. Justification for Cont. Inpt. Med changes. Risk for decompensation in less restrictive environment. Discharge Planning New placement. Request HC Surrog/Guard Advoc?: No Christopher Wall MD Aug 08, 2017 10:41
[2017-08-08 18:13] VITALS: BP 120/79; PULSE 87; RESP 18; TEMP 97.8; O2SAT 100
[2017-08-08] MEDS: DIVALPROEX SODIUM E.R. 500 MG TAB PO SCH (20:31)
[2017-08-09 06:17] VITALS: BP 119/66; PULSE 89; RESP 18; TEMP 99.5; O2SAT 98
[2017-08-09] MEDS: risperiDONE 1 MG TAB PO SCH (08:54)
[2017-08-09] MEDS: SODIUM CHLORIDE 1 GRAM TAB PO SCH ×3 (08:54→17:55)
[2017-08-09] MEDS: levOCARNitine 10% ORAL SOLN 118 ML BTL PO SCH ×3 (08:54→17:55)
[2017-08-09] MEDS: ARIPiprazole 30 MG TAB PO SCH (08:54)
[2017-08-09] MEDS: CHOLECALCIFEROL (VIT D3) 1000 UNIT TAB PO SCH (08:54)
[2017-08-09] MEDS: BENZTROPINE MESYLATE 1 MG TAB PO SCH ×2 (08:54→20:17)
--- NOTE | 2017-08-09 11:26 | HHI.PYPN ---
Subjective Chief Complaint: Psychosis Remarks Patient seen and examined with nurse. Chart reviewed. Case discussed in treatment team with counselor and occupational therapist. Case discussed with nursing staff who reports the patient has been a behavioral problem on the unit. On my examination today, the patient is calm and cooperative. He denies any SI, HI or audiovisual hallucinations. He denies any side effects from medications. Remains resistant to long-acting injectable antipsychotic. No physical complaints. Review of Systems ROS Limitations: Poor Historian Except as stated in HPI: all other systems reviewed are Neg Mental Status Examination Appearance: Appropriate Consciousness: Alert Orientation: Person, Place Motor Activity: Other (no abnormal motor movements noted) Speech: Unremarkable Language: Adequate Fund of Knowledge: Adequate Attention and Concentration: Adequate Memory: Unremarkable Mood: Appropriate Affect: Blunt Thought Process & Associations: Linear Thought Content: Other (minimal thought blocking today. Generally appropriate. ) Hallucination Type: None Delusion Type: None Suicidal Ideation: No Suicidal Plan: No Suicidal Intention: No Homicidal Ideation: No Homicidal Plan: No Homicidal Intention: No Insight: Fair Judgment: Impulsive Results Labs Labs reviewed. No new labs. Vitals/IOs Vital Signs Date Time Temp Pulse Resp B/P (MAP) Pulse Ox O2 Delivery O2 Flow Rate FiO2 08/09/17 06:17 99.5 89 18 119/66 (83) 98 Assessment & Plan Problem List: (1) Schizophrenia, paranoid type ICD Codes: F20.0 - Paranoid schizophrenia Assessment & Plan Discontinue Risperdal and continue with Abilify 30 mg daily. Patient is refusing long-acting injectable antipsychotic. Continue to monitor on the inpatient unit. Continue other medications and care as ordered. Justification for Cont. Inpt. Risk for decompensation in less restrictive environment. Discharge Planning New placement. Case discussed with counselor. Request HC Surrog/Guard Advoc?: No Christopher Wall MD Aug 09, 2017 11:26
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
[2017-08-09] MEDS: DIVALPROEX SODIUM E.R. 500 MG TAB PO SCH (21:00)
[2017-08-10 06:01] VITALS: BP 121/72; PULSE 92; RESP 18; TEMP 97.4; O2SAT 98
[2017-08-10] MEDS: levOCARNitine 10% ORAL SOLN 118 ML BTL PO SCH ×3 (08:09→17:44)
[2017-08-10] MEDS: SODIUM CHLORIDE 1 GRAM TAB PO SCH ×3 (08:09→17:45)
[2017-08-10] MEDS: BENZTROPINE MESYLATE 1 MG TAB PO SCH ×2 (08:09→20:37)
[2017-08-10] MEDS: ARIPiprazole 30 MG TAB PO SCH (09:00)
[2017-08-10] MEDS: CHOLECALCIFEROL (VIT D3) 1000 UNIT TAB PO SCH (09:00)
--- NOTE | 2017-08-10 12:29 | HHI.PYPN ---
Subjective Chief Complaint: Psychosis Remarks Patient seen and case discussed with nursing staff. Chart reviewed. Per nursing staff, patient has been pacing around the unit but has not been any significant behavioral problem. For me today, the patient is calm. He is somewhat hyperverbal and affect blunted. No SI or HI. No side effects from medications. No physical complaints. Patient's case was presented in the [place] act court and placed in continuance for 4 weeks by the criminal court judge. Review of Systems ROS Limitations: Poor Historian Other Limited ROS today. Mental Status Examination Appearance: Appropriate Consciousness: Alert Orientation: Person (at least) Motor Activity: Other (no motoric abnormalities appreciated) Speech: Unremarkable Language: Adequate Fund of Knowledge: Adequate Attention and Concentration: Adequate Memory: Unremarkable Mood: Other (calm) Affect: Blunt Thought Process & Associations: Linear Thought Content: Thought blocking (mild) Hallucination Type: None (no AVH reported) Delusion Type: None Suicidal Ideation: No Suicidal Plan: No Suicidal Intention: No Homicidal Ideation: No Homicidal Plan: No Homicidal Intention: No Insight: Fair Judgment: Impulsive Results Labs Labs reviewed. No new labs. Vitals/IOs Vital Signs Date Time Temp Pulse Resp B/P (MAP) Pulse Ox O2 Delivery O2 Flow Rate FiO2 08/10/17 06:01 97.4 92 18 121/72 (88) 98 Assessment & Plan Problem List: (1) Schizophrenia, paranoid type ICD Codes: F20.0 - Paranoid schizophrenia Assessment & Plan Continue current psychotropics as ordered. I have ordered a sodium level and ammonia level for Tuesday morning. Accepting facility is requesting a screening chest x-ray which I have ordered. Continue other medications and care as ordered. Justification for Cont. Inpt. Risk for decompensation in less restrictive environment. Discharge Planning Counselor informs me that patient has been accepted at [facility] and will have a bed on 08/16/17. Request HC Surrog/Guard Advoc?: No Christopher Wall MD Aug 10, 2017 12:29
--- NOTE | 2017-08-10 16:31 | RADRPT ---
EXAM DATE/TIME: 08/10/2017 15:49 [facility] COMPARISON: No previous studies available for comparison. INDICATIONS : Evaluate for respiratory disease MEDICAL HISTORY : None. SURGICAL HISTORY : None. ENCOUNTER: Initial ACUITY: 1 day PAIN SCORE: 0/10 LOCATION: Bilateral chest FINDINGS: A single view of the chest demonstrates the lungs to be symmetrically aerated without evidence of mas s, infiltrate or effusion. The cardiomediastinal contours are unremarkable. Osseous structures are intact. CONCLUSION: No acute disease. Josep Velasquez MD on August 10, 2017 at 16:29 Board Certified Radiologist. This report was verified electronically.
[2017-08-10 16:53] VITALS: BP 130/75; PULSE 86; RESP 18; TEMP 98.1; O2SAT 99
[2017-08-10] MEDS: DIVALPROEX SODIUM E.R. 500 MG TAB PO SCH (20:36)
[2017-08-11 05:32] VITALS: BP 121/62; PULSE 90; RESP 18; TEMP 98.1; O2SAT 98
[2017-08-11] MEDS: levOCARNitine 10% ORAL SOLN 118 ML BTL PO SCH ×3 (09:00→17:56)
[2017-08-11] MEDS: BENZTROPINE MESYLATE 1 MG TAB PO SCH ×2 (09:10→20:31)
[2017-08-11] MEDS: CHOLECALCIFEROL (VIT D3) 1000 UNIT TAB PO SCH (09:10)
[2017-08-11] MEDS: ARIPiprazole 30 MG TAB PO SCH (09:10)
[2017-08-11] MEDS: SODIUM CHLORIDE 1 GRAM TAB PO SCH ×3 (09:10→17:56)
--- NOTE | 2017-08-11 09:25 | HHI.PYPN ---
Subjective Chief Complaint: Psychosis Remarks Patient seen and examined with nurse. Chart reviewed. Case discussed with nursing staff who reports that the patient is slightly guarded and has continued to pace the unit. He has been no significant behavioral problems though. On my examination today, the patient denies SI or HI. He denies AVH. Denies side effects from medications although he notes that he did have an episode of incontinence overnight. No physical complaints otherwise. Review of Systems ROS Limitations: Poor Historian Except as stated in HPI: all other systems reviewed are Neg Mental Status Examination Appearance: Appropriate Consciousness: Alert Orientation: Person, Place (at least) Motor Activity: Other (no abnormal motor movements noted) Speech: Unremarkable Language: Adequate Fund of Knowledge: Adequate Attention and Concentration: Adequate Memory: Unremarkable Mood: Other (calm) Affect: Blunt (remains blunted) Thought Process & Associations: Linear Thought Content: Thought blocking (mild) Hallucination Type: None (denies AVH) Delusion Type: None Suicidal Ideation: No Suicidal Plan: No Suicidal Intention: No Homicidal Ideation: No Homicidal Plan: No Homicidal Intention: No Insight: Fair Judgment: Impulsive Results Labs Labs reviewed. No new labs. Last Impressions Chest X-Ray 08/10/17 0000 Signed Impressions: Service Date/Time: Thursday, August 10, 2017 15:49 - CONCLUSION: No acute disease. Josep Velasquez MD Vitals/IOs Vital Signs Date Time Temp Pulse Resp B/P (MAP) Pulse Ox O2 Delivery O2 Flow Rate FiO2 08/11/17 05:32 98.1 90 18 121/62 (81) 98 Assessment & Plan Problem List: (1) Schizophrenia, paranoid type ICD Codes: F20.0 - Paranoid schizophrenia Assessment & Plan Continue current psychotropics as ordered. Patient continues to decline BIANCHI or any other medication adjustment. Check a UA. Continue to monitor on inpatient unit. Continue other medications and care as ordered. Justification for Cont. Inpt. High risk for decompensation in less restrictive setting. Discharge Planning JUN placement, patient has a bed 1/2. Request HC Surrog/Guard Advoc?: No Christopher Wall MD Aug 11, 2017 09:25
[2017-08-11 17:10] LABS: BILIRUBIN, URINE NEG (NEG); BLOOD, URINE SMALL (NEG); GLUCOSE,URINE NEG (NEG); KETONE, URINE 10 mg/dL (NEG); MUCUS URINE FEW /lpf (OCC); NITRITE,URINE NEG (NEG); PH, URINE 6.5 (5.0-8.5); URINE COLOR YELLOW (YELLW/STRAW); URINE LEUKOCYTE ESTERASE NEG (NEG)
[2017-08-11 17:33] VITALS: BP 126/75; PULSE 81; RESP 17; TEMP 97.4; O2SAT 97
[2017-08-11] MEDS: DIVALPROEX SODIUM E.R. 500 MG TAB PO SCH (20:31)
[2017-08-12 05:59] VITALS: BP 127/84; PULSE 77; RESP 18; TEMP 96.7; O2SAT 100
[2017-08-12] MEDS: ARIPiprazole 30 MG TAB PO SCH (08:14)
[2017-08-12] MEDS: CHOLECALCIFEROL (VIT D3) 1000 UNIT TAB PO SCH (08:14)
[2017-08-12] MEDS: BENZTROPINE MESYLATE 1 MG TAB PO SCH ×2 (08:14→20:23)
[2017-08-12] MEDS: SODIUM CHLORIDE 1 GRAM TAB PO SCH ×3 (08:14→17:24)
[2017-08-12] MEDS: levOCARNitine 10% ORAL SOLN 118 ML BTL PO SCH ×3 (08:35→17:23)
--- NOTE | 2017-08-12 11:17 | HHI.PYPN ---
Subjective Chief Complaint: Psychosis Remarks Patient seen and examined with counselor. Chart reviewed. Case discussed with nurse. Case discussed with counselor and occupational therapist in treatment team. On my examination today, the patient reports that he feels well. He denies SI. No HI. Denies AVH, although he does appear a little internally stimulated. No benjamin paranoia or other delusions. Denies side effects from medications. No physical complaints. We discuss the risks and benefits of adding a low-dose of a second antipsychotic for residual psychotic symptoms, and the patient is agreeable to such in addition, noting that he has done well with Seroquel and Risperdal in the past. Review of Systems ROS Limitations: Psychotic (mild), Poor Historian Except as stated in HPI: all other systems reviewed are Neg Mental Status Examination Appearance: Appropriate Consciousness: Alert Orientation: Person, Place Motor Activity: Other (no motor abnormalities noted) Speech: Unremarkable Language: Adequate Fund of Knowledge: Adequate Attention and Concentration: Adequate Memory: Unremarkable Mood: Other (calm) Affect: Blunt Thought Process & Associations: Linear Thought Content: Thought blocking (mild) Hallucination Type: Other (denies AVH but appears somewhat internally stimulated) Delusion Type: None Suicidal Ideation: No Suicidal Plan: No Suicidal Intention: No Homicidal Ideation: No Homicidal Plan: No Homicidal Intention: No Insight: Fair Judgment: Impulsive Results Labs Test 08/11/17 16:10 08/12/17 09:49 Urine Color YELLOW Urine Turbidity CLEAR Urine pH 6.5 Urine Specific [place] 1.014 Urine Protein NEG mg/dL Urine Glucose (UA) NEG mg/dL Urine Ketones 10 mg/dL Urine Occult Blood SMALL Urine Nitrite NEG Urine Bilirubin NEG Urine Urobilinogen LESS THAN 2.0 MG/DL Urine Leukocyte Esterase NEG Urine RBC 1 /hpf Urine WBC LESS THAN 1 /hpf Urine Mucus FEW /lpf Microscopic Urinalysis Comment CULT NOT INDICATED Sodium Level 131 MEQ/L Ammonia 65 MCMOL/L Labs reviewed. UA fairly bland, no sign of UTI. No further reports of incontinence. Sodium level low but within recent baseline. Nursing staff reports that the patient has been drinking copious amounts of fluid and we'll make efforts to limit fluid consumption to a reasonable quantity. Hyperammonemia persists despite Carnitor without signs of hyperammonemic encephalopathy. Vitals/IOs Vital Signs Date Time Temp Pulse Resp B/P (MAP) Pulse Ox O2 Delivery O2 Flow Rate FiO2 08/12/17 05:59 96.7 77 18 127/84 (98) 100 Intake and Output 08/12/17 08/12/17 08/13/17 08:00 16:00 00:00 Intake Total 360 ml Balance 360 ml Assessment & Plan Problem List: (1) Schizophrenia, paranoid type ICD Codes: F20.0 - Paranoid schizophrenia Assessment & Plan Add Seroquel 50 mg at bedtime for residual psychotic symptoms. Add lactulose to Carnitor for hyperammonemia. Staff to try to limit patient's fluid intake to reasonable quantity. Check follow-up sodium and ammonia level after the weekend. Continue to monitor on the inpatient unit. Continue other medications and care as ordered. Justification for Cont. Inpt. Medication changes. Risk for decompensation in less restrictive environment. Discharge Planning Anticipate discharged [facility] next Tuesday. Request HC Surrog/Guard Advoc?: No Christopher Wall MD Aug 12, 2017 11:17
--- NOTE | 2017-08-12 15:43 | PD.TTN ---
Patient Problems 1. Discharge planning 2. Medication compliance 3. Knowledge deficit 4. Lack of coping skills Progress Toward Goals Provider Present: Dr. La Wall Provider Input: Pt is new to the unit and will be evaluated along with his medication regiment. 07/26- Pt has been continued on his medication from home and will be evaluated for placement. 07/29/17 Patient is being considered for long acting injectable. Placement is being looked at for patient. 08/02- Pt medication regiment is being evaluated and adjusted including addition of Abilify. He will continue to be referred for new placement. 08/05- Pt cross taper continues on medication from Risperdal to Abilify and pt will be considered for possible long acting injection. 08/09- Pt remains a placement issue and will be referred [facility]. Pt cross taper continues from Risperdal to Abilify. Pt has declined long acting injection though this has been suggested. 08/12- Pt medication regiment will continue to be evaluated and additional medication will be suggested. Nurse(s) Present: Leonarda Delcid RN Nurse(s) Input: Pt has been showing improvement, remains withdrawn to self, to be responding to internal stimuli, paces the [place] and is medication compliant. 07/29/17 Patient's nurse Bere reports patient is medication complaint, calm, cooperative, attends groups, Performs ADL's denies any auditory or visual hallucinations. Pt does laugh inappropriately and appears to be internally responding. 08/02- Radha Cordoba RN Pt has been no behavioral issue today, has been taking his medication, is withdrawn and paces the unit. 08/05- Lluvia Fairbanks RN Pt has been no behavioral issues and has been medication compliant. 08/09- Makayla Sawyer RN Pt appears to be responding to internal stimuli, is more communicative, has shown no aggression and is medication compliant. 08/12- Makayla Sawyer RN Pt appears calm, no behavioral issue and has been compliant. Psychiatric Counselors Present: Panda Betancourt [facility], Kacey Cramer, [facility] Psych Therapist Input: Pt is new to the unit and will be evaluated using biopsychosocial assessment. 07/26- Pt appears somewhat preoccupied, cooperative, withdrawn, seclusive, appropriate and organized. He appears discharge focused and with poor insight into condition and need for care. He is willing to be placed at a new [facility]. He appears to be able to utilize coping and emotional regulation skills as he has not had any outbursts. He is compliant with medication regiment. 07/29/17 Patient presents with no motiviation, no insight into his situation. Patient is alert to person, and place. patient presents with internal stimulation during assessment. patient made poor eye contact Patient's speech is low, and difficulty to understand. Placement is being looked at for patient. 08/02- Pt appears calm today but was aggressive yesterday with cook house laborer. He appears withdrawn, seclusive to self, cooperative, appropriate and organized. He is discharge focused and willing to go to an [facility]. There appears to be limited coping and emotional regulation skills at this time. Insight and judgment remains poor into condition and need for care. 08/05- Pt remains largely withdrawn to self and has been calm after his outburst earlier in the week. Pt is poorly engaged in treatment but is medication compliant. He paces the unit and remains to himself. No noted agitation or aggression. Insight into condition and need for care remains poor. He appears to be utilizing some level of coping and emotional regulation skills as he has had no further outbursts. He is agreeable to [facility] placement. 08/09- Pt remains withdrawn, seclusive, limited in his interaction, preoccupied and to be pacing on unit. He remains with limited insight into condition and need for care. He appears with some use of emotional and coping skills as he has had no further outbursts on unit. Pt is willing to be placed at a new facility. 08/12- Pt appears calm, cooperative, appropriate, organized and oriented. He continues to appear to be responding to internal stimuli and with delay in responses. He is compliant with medication regiment and changes. He is compliant with going to [facility] on Tuesday. Pt appears to be utilizing coping and emotional regulation skills. He presents with poor insight into condition and need for care. Group Spec/RT/OT/IRWIN Present: FRANCIS Davison, DC Daniel, Aba Hu, OT, DC Amaya Group Spec/RT/OT/IRWIN Input: Pt is new and will be evaluated. 07/26- FRANCIS Davison Pt does not attend groups at this time. 07/29/17 Patient attends some groups. Usually for a short period at a time. 08/02- DC Amaya Pt attends 50% of OT groups but does not participate. He isolates to himself. 08/05- DC Amaya Pt attends select groups and remains isolated to self. 08/09- DC Daniel Pt attends select groups appropriately, appears internally stimulated and does not initiate conversation. 08/12- DC Daniel Pt attends most groups, has limited participation and is internally stimulated. Discharge Plan SMA, Other Pt will need assistance with placement in an [facility] as he cannot return to mother' s home due to aggression leading to admission. Documentation Scribe: ANDREA Azar Jonathan LMHC Aug 12, 2017 15:43
[2017-08-12 18:06] VITALS: BP 130/66; PULSE 86; RESP 18; TEMP 98.6; O2SAT 100
[2017-08-12] MEDS: QUEtiapine FUMARATE 25 MG TAB PO SCH (20:23)
[2017-08-12] MEDS: DIVALPROEX SODIUM E.R. 500 MG TAB PO SCH (20:24)
[2017-08-13 05:49] VITALS: BP 109/70; PULSE 88; RESP 18; TEMP 99.6; O2SAT 98
[2017-08-13] MEDS: CHOLECALCIFEROL (VIT D3) 1000 UNIT TAB PO SCH (08:25)
[2017-08-13] MEDS: LACTULOSE SYRUP 20 GM/30 ML CUP PO SCH (08:25)
[2017-08-13] MEDS: BENZTROPINE MESYLATE 1 MG TAB PO SCH ×2 (08:25→21:02)
[2017-08-13] MEDS: SODIUM CHLORIDE 1 GRAM TAB PO SCH ×3 (08:25→17:59)
[2017-08-13] MEDS: ARIPiprazole 30 MG TAB PO SCH (08:25)
[2017-08-13] MEDS: levOCARNitine 10% ORAL SOLN 118 ML BTL PO SCH ×3 (08:25→17:59)
--- NOTE | 2017-08-13 12:38 | HHI.PYPN ---
Subjective Chief Complaint: Psychosis Remarks Pt seen and discussed with staff. He is guarded and paces the hallways.He does not interact with peers, but is observed muttering to self frequently on unit. He is compliant with medications and denies side effects. No SI/HI. Mental Status Examination Appearance: Appropriate Consciousness: Alert Orientation: Person, Place Motor Activity: Other (no motor abnormalities noted) Speech: Unremarkable Language: Adequate Fund of Knowledge: Adequate Attention and Concentration: Adequate Memory: Unremarkable Mood: Other (calm) Affect: Blunt Thought Process & Associations: Linear Thought Content: Thought blocking (mild) Hallucination Type: Other (denies AVH but appears somewhat internally stimulated) Delusion Type: None Suicidal Ideation: No Suicidal Plan: No Suicidal Intention: No Homicidal Ideation: No Homicidal Plan: No Homicidal Intention: No Insight: Fair Judgment: Impulsive Results Vitals/IOs Vital Signs Date Time Temp Pulse Resp B/P (MAP) Pulse Ox O2 Delivery O2 Flow Rate FiO2 08/13/17 05:49 99.6 88 18 109/70 (83) 98 Assessment & Plan Problem List: (1) Schizophrenia, paranoid type ICD Codes: F20.0 - Paranoid schizophrenia Assessment & Plan Continue current tx plan Estimated LOS: days Justification for Cont. Inpt. risk of decompensation Request HC Surrog/Guard Advoc?: Barbra Aquino MD Aug 13, 2017 12:38
[2017-08-13] MEDS: DIVALPROEX SODIUM E.R. 500 MG TAB PO SCH (21:02)
[2017-08-13] MEDS: QUEtiapine FUMARATE 25 MG TAB PO SCH (21:02)
[2017-08-14 05:52] VITALS: BP 123/68; PULSE 84; RESP 16; TEMP 98.1; O2SAT 96
[2017-08-14] MEDS: CHOLECALCIFEROL (VIT D3) 1000 UNIT TAB PO SCH (08:39)
[2017-08-14] MEDS: BENZTROPINE MESYLATE 1 MG TAB PO SCH ×2 (08:39→20:21)
[2017-08-14] MEDS: SODIUM CHLORIDE 1 GRAM TAB PO SCH ×3 (08:39→18:00)
[2017-08-14] MEDS: ARIPiprazole 30 MG TAB PO SCH (08:39)
[2017-08-14] MEDS: LACTULOSE SYRUP 20 GM/30 ML CUP PO SCH (08:39)
[2017-08-14] MEDS: levOCARNitine 10% ORAL SOLN 118 ML BTL PO SCH ×3 (08:40→18:00)
--- NOTE | 2017-08-14 17:26 | HHI.PYPN ---
Subjective Chief Complaint: Psychosis Remarks Pt seen and discussed with staff. He remains psychotic with internal stimuli. He is compliant with medications. No SI/HI. Mental Status Examination Appearance: Appropriate Consciousness: Alert Orientation: Person, Place Motor Activity: Other (no motor abnormalities noted) Speech: Unremarkable Language: Adequate Fund of Knowledge: Adequate Attention and Concentration: Adequate Memory: Unremarkable Mood: Other (calm) Affect: Blunt Thought Process & Associations: Linear Thought Content: Thought blocking (mild) Hallucination Type: Other (denies AVH but appears somewhat internally stimulated) Delusion Type: None Suicidal Ideation: No Suicidal Plan: No Suicidal Intention: No Homicidal Ideation: No Homicidal Plan: No Homicidal Intention: No Insight: Fair Judgment: Impulsive Results Vitals/IOs Vital Signs Date Time Temp Pulse Resp B/P (MAP) Pulse Ox O2 Delivery O2 Flow Rate FiO2 08/14/17 05:52 98.1 84 16 123/68 (86) 96 Assessment & Plan Problem List: (1) Schizophrenia, paranoid type ICD Codes: F20.0 - Paranoid schizophrenia Assessment & Plan continue current tx plan. Estimated LOS: days Justification for Cont. Inpt. impairments in reality testing Request HC Surrog/Guard Advoc?: Barbra Aquino MD Aug 14, 2017 17:26
[2017-08-14 17:57] VITALS: BP 112/66; PULSE 91; RESP 18; TEMP 98.9; O2SAT 99
[2017-08-14] MEDS: QUEtiapine FUMARATE 25 MG TAB PO SCH (20:21)
[2017-08-14] MEDS: DIVALPROEX SODIUM E.R. 500 MG TAB PO SCH (20:22)
[2017-08-15 06:18] VITALS: BP 132/78; PULSE 95; RESP 17; TEMP 98; O2SAT 95
[2017-08-15] MEDS: LACTULOSE SYRUP 20 GM/30 ML CUP PO SCH (08:54)
[2017-08-15] MEDS: SODIUM CHLORIDE 1 GRAM TAB PO SCH ×3 (08:54→18:18)
[2017-08-15] MEDS: BENZTROPINE MESYLATE 1 MG TAB PO SCH ×2 (08:54→20:26)
[2017-08-15] MEDS: ARIPiprazole 30 MG TAB PO SCH (08:54)
[2017-08-15] MEDS: CHOLECALCIFEROL (VIT D3) 1000 UNIT TAB PO SCH (08:54)
[2017-08-15] MEDS: levOCARNitine 10% ORAL SOLN 118 ML BTL PO SCH ×3 (08:56→18:00)
[2017-08-15 09:06] LABS: BICARBONATE 31.9 MEQ/L (21.0-32.0); CALCIUM 8.8 MG/DL (8.5-10.1); CREATININE 0.66 MG/DL (0.60-1.30)
--- NOTE | 2017-08-15 10:22 | HHI.PYPN ---
Subjective Chief Complaint: Psychosis Remarks Patient seen and examined with nurse. Chart reviewed. Case discussed with nursing staff who reports the patient is cooperative and has been no behavioral problem on the unit. On my examination today, the patient denies SI, HI or AVH. Affect is somewhat more reactive and he smiles at intervals. He denies side effects from medications. He continues to decline long-acting injectable antipsychotic when I recommended this to him. No physical complaints. Review of Systems ROS Limitations: Poor Historian Except as stated in HPI: all other systems reviewed are Neg Mental Status Examination Appearance: Appropriate Consciousness: Alert Orientation: Person, Place (at least) Motor Activity: Normal gait, Other (no motoric abnormalities appreciated) Speech: Unremarkable Language: Adequate Fund of Knowledge: Adequate Attention and Concentration: Adequate Memory: Unremarkable Mood: Other (calm) Affect: Other (somewhat more full and reactive today) Thought Process & Associations: Linear Thought Content: Thought blocking (minimal) Hallucination Type: Other (denies AVH) Delusion Type: None Suicidal Ideation: No Suicidal Plan: No Suicidal Intention: No Homicidal Ideation: No Homicidal Plan: No Homicidal Intention: No Insight: Fair Judgment: Impulsive Results Labs Test 08/15/17 08:20 08/15/17 08:43 Ammonia 45 MCMOL/L Blood Urea Nitrogen 9 MG/DL Creatinine 0.66 MG/DL Random Glucose 99 MG/DL Calcium Level 8.8 MG/DL Sodium Level 132 MEQ/L Potassium Level 4.2 MEQ/L Chloride Level 95 MEQ/L Carbon Dioxide Level 31.9 MEQ/L Anion Gap 5 MEQ/L Estimat Glomerular Filtration Rate 137 ML/MIN Labs reviewed. Ammonia level decreased. Sodium within recent historical range. Vitals/IOs Vital Signs Date Time Temp Pulse Resp B/P (MAP) Pulse Ox O2 Delivery O2 Flow Rate FiO2 08/15/17 06:18 98.0 95 17 132/78 (96) 95 Assessment & Plan Problem List: (1) Schizophrenia, paranoid type ICD Codes: F20.0 - Paranoid schizophrenia Assessment & Plan Continue current psychotropics as ordered. Continue to monitor on the inpatient unit. Continue other medications and care as ordered. Justification for Cont. Inpt. Risk for decompensation in less restrictive environment. Discharge Planning Anticipate discharge to [facility] tomorrow. Request HC Surrog/Guard Advoc?: No Christopher Wall MD Aug 15, 2017 10:22
[2017-08-15 16:28] VITALS: BP 121/75; PULSE 88; RESP 18; TEMP 97.8; O2SAT 99
[2017-08-15] MEDS: QUEtiapine FUMARATE 25 MG TAB PO SCH (20:27)
[2017-08-15] MEDS: DIVALPROEX SODIUM E.R. 500 MG TAB PO SCH (20:27)
[2017-08-16 05:56] VITALS: BP 120/76; PULSE 85; RESP 16; TEMP 97.3; O2SAT 99
[2017-08-16] MEDS: levOCARNitine 10% ORAL SOLN 118 ML BTL PO SCH (09:00)
[2017-08-16] MEDS: LACTULOSE SYRUP 20 GM/30 ML CUP PO SCH (09:00)
[2017-08-16] MEDS: ARIPiprazole 30 MG TAB PO SCH (09:07)
[2017-08-16] MEDS: BENZTROPINE MESYLATE 1 MG TAB PO SCH (09:07)
[2017-08-16] MEDS: CHOLECALCIFEROL (VIT D3) 1000 UNIT TAB PO SCH (09:07)
[2017-08-16] MEDS: SODIUM CHLORIDE 1 GRAM TAB PO SCH (09:07)
[2017-08-16] MEDS ORDERED: DEPA500T3 PO (10:58)
[2017-08-16] MEDS ORDERED: Lactulose Liq PO (10:58)
[2017-08-16] MEDS ORDERED: LEVO10%S PO (10:58)
[2017-08-16] MEDS ORDERED: SERO25TA PO (10:58)
[2017-08-16] MEDS ORDERED: ARIP1TAB15 PO (10:58)
[2017-08-16] MEDS ORDERED: CHOL1000 PO (10:58)
[2017-08-16] MEDS ORDERED: SODI1TAB PO (10:58)
[2017-08-16] MEDS ORDERED: Benztropine PO (10:58)
--- NOTE | 2017-08-16 10:58 | HHI.DS ---
Psychiatry Discharge Summary Inpatient Psychiatric care?: Yes Advance Directive: No Reason Not Provided: HE DIDN'T WANT TO TALK Mental Health AdvanceDirective: No Health Care Proxy: No Admission Admission Date Jul 21, 2017 at 11:51 Admission Diagnosis: (1) Schizophrenia, paranoid type ICD Code: F20.0 - Paranoid schizophrenia Brief History This is a 36-year-old male with a multiyear history of schizophrenia, presenting under a Ybarra act that was initiated by one of our ED attending physicians. Apparently the patient had to leave a intermediate in which he resided. In the process of attempting to get another intermediate, he was determined to be aggressive and therefore rejected. He has stayed with his mother recently and had one of these episodes of aggression, psychosis and threatening behavior. Apparently he was running around his mother's house, both inside and outside, calling and yelling that he was being persecuted and unknown other people were out to "get him". He became so agitated as to threaten physical aggression with his mother. Upon interview, the patient has obvious symptoms of tardive dyskinesia. His medications were reviewed and he is on high doses of Risperdal and low doses of Cogentin. He does feel paranoid and he is on able to contract for safety. Tobacco Use In Past 30 Days: No Tobacco Past 30 Days Alcohol Use: Monthly or Less Hospital Course Patient was admitted to a locked, inpatient psychiatric unit. A general medical consultation was obtained. Appropriate precautions were in place throughout patient's hospital stay. Patient was seen and examined on the unit by psychiatry and also visited by counselor. Psychotropic medications were adjusted. Risperdal was replaced with Abilify as the former agent had caused hyperprolactinemia and Abilify is less associated with this side effect. The patient consistently declined long-acting injectable. Seroquel was added to augment the effect of the Abilify. Carnitor and lactulose were added to manage hyperammonemia, possibly associated with patient's Depakote. There was no evidence of any suicidality or homicidality on the inpatient unit. Besides a single episode of behavioral disturbance around the midpoint of patient's hospital stay, the patient was no behavioral problem on the inpatient unit. Counselor has arranged for placement at [facility]. On the day of discharge: Patient seen and examined with nurse. Chart reviewed. Case discussed with nursing staff. No behavioral issues overnight. Case discussed in treatment team. On my examination today, the patient is agreeable to going to [facility] today. He denies any suicidal or homicidal ideation, intent or plan on direct questioning and contracts for safety. Mood is "pretty good," and I can elicit no depressive or hypomanic/manic symptoms at this time. He denies audiovisual hallucinations, and I can elicit no delusional material. He denies side effects from medications. He continues to decline long-acting injectable antipsychotic. No physical complaints. Suicide and violence risk assessment both suggest lower imminent risk, and the patient's level of function is adequate for planned level of outpatient care. The patient has maximized benefit from this inpatient psychiatric hospital stay and will be discharged to facility today with psychiatric follow-up as arranged by counselor. Patient is also to follow-up with primary care. I have counseled the patient to abstain from substances of abuse. I have counseled the patient regarding warning signs for need to return to the psychiatric emergency room as part of a general safety plan. Results Blood Pressure 120 / 76 Vital Signs Date Time Temp Pulse Resp B/P (MAP) Pulse Ox O2 Delivery O2 Flow Rate FiO2 08/16/17 05:56 97.3 85 16 120/76 (91) 99 Laboratory Tests Test 08/15/17 08:20 08/15/17 08:43 Ammonia 45 MCMOL/L (11-32) Sodium Level 132 MEQ/L (136-145) Chloride Level 95 MEQ/L (98-107) Laboratory Results Test 07/22/17 10:18 08/01/17 19:24 Cholesterol Level 115 MG/DL (120-200) HDL Cholesterol 42.6 MG/DL (40.0-60.0) Hemoglobin A1c 5.3 % (4.3-6.0) LDL Cholesterol 61 MG/DL (0-99) Triglycerides Level 58 MG/DL (42-150) Valproic Acid (Depakene) Level 95 MCG/ML (50-100) Summary of Procedures None done Imaging Last Impressions Chest X-Ray 08/10/17 0000 Signed Impressions: Service Date/Time: Thursday, August 10, 2017 15:49 - CONCLUSION: No acute disease. Josep Velasquez MD Pending results at discharge: No Medications # of Antipsychotic meds at D/C: 2 Appropriate >1 Antipsych meds?: 4 Approp Antipsych med options 1 - Minimum of three failed multiple trials of monotherapy. 2 - Documented plan to taper to monotherapy due to previous use of multiple meds OR cross-taper in progress at D/C. 3 - Documentation of augmentation of Clozapine. 4 - Justification other than those listed in allowable values 1-3, document here : Required multiple antipsychotics for stabilization Discharge Discharge Date: Aug 16, 2017 Discharge Diagnosis: (1) Schizophrenia, paranoid type Diagnosis: Principal (stable) ICD Code: F20.0 - Paranoid schizophrenia Pt Condition on Discharge: Stable Discharge Disposition: [facility] Discharge Instructions Diet Instructions: As Tolerated, No Restrictions Activities you can perform: Weight Bearing as Lindsay Scheduled Appointment: as per counselor's notes New Orders: AMMONIA - 1 Week BASIC METABOLIC PROF - 1 Week DEPAKENE - 1 Week New Medications: Aripiprazole (Aripiprazole) 30 Mg Tab 30 MG PO DAILY for Mental Health for 15 Days, #15 TAB 1 Refill Cholecalciferol (Gnp Vitamin D3 Extra Stre) 1,000 Unit Tab 1000 UNITS PO DAILY for Low vitamin D for 15 Days, TAB 1 Refill Levocarnitine Liq (Carnitor Liq) 1 Gm/10 Ml Soln 6 ML PO TID for Hyperammonemia for 15 Days, ML 1 Refill Quetiapine (Seroquel) 25 Mg Tab 50 MG PO HS for Mental Health for 15 Days, TAB 1 Refill Sodium Chloride (Sodium Chloride) 1 Gram Tab 1 GM PO TID for Sodium supplement for 15 Days, TAB 1 Refill [Benztropine] () 1 MG TAB 1 MG PO BID for Side effect management for 15 Days, 1 Refill [Lactulose Liq] () 30 ML SYRP 30 ML PO DAILY for Hyperammonemia for 15 Days, 1 Refill Continued Medications: Divalproex ER (Depakote ER) 500 Mg Courtney 1500 MG PO HS for Mental Health for 15 Days, TAB 1 Refill (This prescription has been renewed) Discontinued Medications: Benztropine (Benztropine) 0.5 Mg Tab 2 MG PO BID, #60 TAB 0 Refills Risperidone (Risperidone) 4 Mg Tab 4 MG PO BID, #30 TAB 0 Refills Discharge Time > 30 minutes Mental Status Examination Appearance: Appropriate Consciousness: Alert Orientation: Person, Place, Date/Time (approx), Situation Motor Activity: Normal gait, Other (no abnormal motor movements noted) Speech: Unremarkable Language: Adequate Fund of Knowledge: Adequate Attention and Concentration: Adequate Memory: Unremarkable Mood: Other ("pretty good") Affect: Blunt Thought Process & Associations: Intact, Logical, Goal directed, Linear Thought Content: Appropriate Hallucination Type: None (denies AVH) Delusion Type: None Suicidal Ideation: No Suicidal Plan: No Suicidal Intention: No Homicidal Ideation: No Homicidal Plan: No Homicidal Intention: No Insight: Fair Judgment: Adequate (fair at best) Discharge/Advance Care Plan Health Problems: (1) Schizophrenia, paranoid type Goals to promote your health * To prevent worsening of your condition and complications * To maintain your health at the optimal level Directions to meet your goals Take your medications as prescribed Follow your dietary instruction Follow activity as directed Keep your appointments as scheduled Take your immunizations and boosters as scheduled If your symptoms worsen call your PCP, if no PCP go to Urgent Care Center or Emergency Room For 07/03 questions related to your inpatient stay or results of tests pending at discharge, please contact Dr. Christopher Wall at Smoking is Dangerous to Your Health. Avoid second hand smoking Christopher Wall MD Aug 16, 2017 10:58
== END 2017-08-16 14:10 | DRG 885 ==
LOC: NEPD 21:36 → NEDA 07-21 11:51 → H270 07-21 12:40 → H260 07-26 14:30 → H270 08-01 08:39
PROVIDERS: ADMIT Psychiatry & Neurology Psychiatry; ATTEND Psychiatry & Neurology Psychiatry
DX: F20.0 Paranoid schizophrenia (principal); E72.20 Disorder of urea cycle metabolism, unspecified; E22.1 Hyperprolactinemia; E87.1 Hypo-osmolality and hyponatremia; G24.01 Drug induced subacute dyskinesia; Z72.0 Tobacco use; Z79.899 Other long term (current) drug therapy; Z91.14 Patient's other noncompliance with medication regimen
CPT/HCPCS: 71010; 80048; 80053; 80061; 80164; 80307; 81001; 82140; 82306; 82607; 83036; 83735; 84100; 84146; 84295; 84443; 85025; 93005; 99285